=== PATIENT | male | born 1990 | race Caucasian/White ===

== ENCOUNTER 2019-02-03 22:59 | Inpatient (IN) | payer OTHER ==
[2019-02-03] MEDS ORDERED: Sodium Chloride 0.9% 10 ML Syringe FLUSH PRN (23:24)
[2019-02-03] MEDS ORDERED: Ondansetron 4 MG/2 ML SDV IVPUSH ONE (23:27)
[2019-02-03] MEDS ORDERED: Acetaminophen 1,000 MG in Premix Bag 1 BAG IV ONE (23:27)
[2019-02-03] MEDS ORDERED: Sodium Chloride 0.9% 1,000 ML IV ONE (23:27)
--- NOTE | 2019-02-03 23:28 | EDM.PDOC ---
ED HPI GENERAL MEDICAL PROBLEM - General Stated Complaint: VOMITING Time Seen by Provider: 02/03/19 23:10 Source of Information: Reports: Patient History Limitations: Reports: No Limitations - History of Present Illness INITIAL COMMENTS - FREE TEXT/NARRATIVE: 28-year-old transgender whose preferred pronouns is she goes by "Kina" who presents with nausea and malaise which began midday yesterday and progressed into today. She reports that approximately 1-2 PM today she began to have fever and shaking chills and aching all over. The symptoms progressively worsened and then at approximately 10:45 PM tonight she began to have vomiting and has had 4- 5 episodes of emesis. She called a friend and that friend brought her to the emergency department. No diarrhea. She does have ulcers on both of her great toes with the right one being worse than the left. She is a relatively poor historian but does report that she has had the ulcers on her great toes for quite some time but over the past few days to a week the ulcer on her right great toe has slowly become more swollen, more painful and more erythematous. She also developed a slight cough this afternoon. She has had no dysuria. He rates his pain as a 10/10 and reports that it is aching all over. She feels weak and dizzy and she reports that she feels heavy all over. She is a type I diabetic and reports that the last time she checked her blood sugar was in the 120 range. However she cannot tell me when she last checked her blood pressure. There are no other associated signs or symptoms. There are no other modifying factors. Onset: Other (yesterday with worsening today) Duration: Getting Worse Location: Reports: Generalized Quality: Reports: Ache Severity: Severe Improves with: Reports: None Worsens with: Reports: Movement Context: Reports: Other (No known inciting events other than ulcers on her toes) Associated Symptoms: Reports: Diaphoresis, Fever/Chills, Loss of Appetite, Malaise, Nausea/Vomiting, Weakness Treatments VERIFICATION LEAD: Reports: Other (see below) (Nothing) - Related Data Allergies Allergy/AdvReac Type Severity Reaction Status Date / Time No Known Allergies Allergy Verified 02/03/19 23:03 Home Meds: Home Meds Estradiol 02/04/19 [History] Insulin Degludec [Tresiba Flextouch U-100] 02/04/19 [History] Spironolactone [Aldactone] 02/04/19 [History] Past Medical History Endocrine/Metabolic History: Reports: Diabetes, Type I - Past Surgical History Other Surgical History Comment: No previous surgeries Social & Family History - Tobacco Use Smoking Status *Q: Unknown Ever Smoked (Nonsmoker) - Alcohol Use Alcohol Use History: Yes Alcohol Use Frequency: Socially - Sexual History Sexual History: Reports: Same Sex Partner Other Sexual History Comment: Patient is transgender and identifies as a she. - Living Situation & Occupation Living situation: Reports: Single Occupation: Employed (Works at [employer]) Social History Comment: Here with a friend. ED ROS GENERAL - Review of Systems Review Of Systems: See Below Constitutional: Reports: Fever, Chills, Malaise, Weakness, Diaphoresis HEENT: Reports: Other (Dry mouth) Respiratory: Reports: Cough Cardiovascular: Reports: No Symptoms Endocrine: Reports: No Symptoms GI/Abdominal: Reports: Nausea, Vomiting (4-5 since 10:45 PM tonight) : Reports: No Symptoms Musculoskeletal: Reports: Other (Aching all over) Skin: Reports: Diaphoresis Neurological: Reports: No Symptoms Hematologic/Lymphatic: Reports: No Symptoms Immunologic: Reports: No Symptoms ED EXAM, GENERAL - Physical Exam Exam: See Below Exam Limited By: No Limitations General Appearance: Alert, WD/WN, Anxious, Moderate Distress Eye Exam: Bilateral Eye: EOMI, Normal Inspection, PERRL Ears: Normal External Exam Ear Exam: Bilateral Ear: Auricle Normal Nose: Normal Inspection, Normal Mucosa, No Blood Throat/Mouth: Normal Voice, No Airway Compromise, Other (Primary bright) Head: Atraumatic, Normocephalic Neck: Normal Inspection, Supple, Non-Tender, Full Range of Motion Respiratory/Chest: No Respiratory Distress, Lungs Clear, Normal Breath Sounds, No Accessory Muscle Use, Chest Non-Tender Cardiovascular: Normal Peripheral Pulses, No Edema, No JVD, No Murmur, Tachycardia Peripheral Pulses: 2+: Radial (L), Radial (R), Dorsalis Pedis (L), Dorsalis Pedis (R) GI/Abdominal: Soft, No Mass, Tender (Mild diffuse tenderness), Abnormal Bowel Sounds (Decreased bowel sounds) Back Exam: Normal Inspection. No: CVA Tenderness (L), Decreased Range of Motion Extremities: Normal Inspection, No Pedal Edema, Normal Capillary Refill Neurological: Alert, Oriented, CN II-XII Intact, No Motor/Sensory Deficits Skin Exam: Warm, Diaphoretic, Other (Ulcers of both great toes with marked erythema and edema of right great toe with erythema and edema extending to the mid foot) Course - Orders/Labs/Meds Orders: Active Orders 24 hr Category Date Time Status Admission Status [Patient Status] [ADT] Routine ADT 02/04/19 01:11 Ordered Patient Status Manage Transfer [TRANSFER] Routine ADT 02/04/19 01:22 Active Accu Check [Blood Glucose Check, Bedside] [RC] TIDMEALS Care 02/04/19 01:22 Active Antiembolic Devices [RC] .Routine Care 02/04/19 01:14 Active Cardiac Monitoring [RC] .As Directed Care 02/04/19 01:17 Active Height and Weight [RC] DAILY Care 02/04/19 01:13 Active Intake and Output [RC] QSHIFT Care 02/04/19 01:16 Active Pulse Oximetry [RC] PRN Care 02/04/19 01:13 Active Up With Assistance [RC] ASDIRECTED Care 02/04/19 01:13 Active VTE/DVT Education [RC] Click to Edit Care 02/04/19 01:14 Active Vital Signs [RC] Q1H Care 02/04/19 01:13 Active Clear Liquid Diet [DIET] Diet 02/04/19 Breakfast Ordered Chest 2V [CR] Stat Exams 02/03/19 23:24 Taken Foot Comp Min 3V Bi [CR] Stat Exams 02/03/19 23:24 Taken BASIC METABOLIC PANEL,BMP [CHEM] AM Lab 02/04/19 05:11 Ordered CBC W/O DIFF,HEMOGRAM [HEME] AM Lab 02/04/19 05:11 Ordered CULTURE BLOOD [BC] Urgent Lab 02/03/19 23:30 Received CULTURE BLOOD [BC] Urgent Lab 02/03/19 23:35 Received UA W/MICROSCOPIC [URIN] Stat Lab 02/03/19 23:24 Ordered Acetaminophen [Tylenol] Med 02/04/19 01:13 Active 650 mg PO Q4H PRN Insulin Lispro [HumaLOG] Med 02/04/19 08:00 Active See Protocol SUBCUT TIDMEALS Ondansetron [Zofran] Med 02/04/19 01:18 Active 4 mg IVPUSH Q6H PRN Pharmacy to Dose - Vancomycin Med 02/04/19 01:30 Ordered 1 dose .XX ASDIRECTED Piperacillin/Tazobactam [Zosyn] 3.375 gm Med 02/04/19 06:30 Ordered Sodium Chloride 0.9% [Normal Saline] 50 ml IV Q6H Saccharomyces Boulardii [Florastor] Med 02/04/19 09:00 Active 250 mg PO BID Sodium Chloride 0.9% [Normal Saline] 1,000 ml Med 02/03/19 23:30 Active IV ASDIRECTED Sodium Chloride 0.9% [Saline Flush] Med 02/03/19 23:24 Active 10 ml FLUSH ASDIRECTED PRN Vancomycin 1 gm Med 02/04/19 00:23 Active Sodium Chloride 0.9% [Normal Saline] 250 ml IV ONETIME Blood Culture x2 Reflex Set [OM.PC] Urgent Oth 02/03/19 23:24 Ordered DVT/VTE Prophylaxis Reflex [OM.PC] Per Unit Routine Oth 02/04/19 01:13 Ordered Peripheral IV Insertion Adult [OM.PC] Routine Oth 02/03/19 23:24 Ordered Resuscitation Status Routine Resus Stat 02/04/19 01:13 Ordered Medication Orders Acetaminophen (Tylenol) 650 mg PO Q4H PRN PRN Reason: analgesia/fever Sodium Chloride (Normal Saline) 1,000 mls @ 150 mls/hr IV ASDIRECTED RAKAN Last Admin: 02/04/19 00:20 Dose: 150 mls/hr Vancomycin HCl 1 gm/ Sodium (Chloride) 250 mls @ 167 mls/hr IV ONETIME ONE Stop: 02/04/19 01:52 Last Admin: 02/04/19 01:01 Dose: 167 mls/hr Piperacillin Sod/Tazobactam (Sod 3.375 gm/ Sodium Chloride) 50 mls @ 100 mls/ hr IV Q6H RAKAN Insulin Human Lispro (Humalog) 0 unit SUBCUT TIDMEALS [facility]; Protocol Ondansetron HCl (Zofran) 4 mg IVPUSH Q6H PRN PRN Reason: Nausea/Vomiting Saccharomyces Boulardii (Florastor) 250 mg PO BID RAKAN Sodium Chloride (Saline Flush) 10 ml FLUSH ASDIRECTED PRN PRN Reason: Keep Vein Open Last Admin: 02/04/19 00:12 Dose: 10 ml Vancomycin HCl (Pharmacy To Dose - Vancomycin) 1 dose .XX ASDIRECTED [facility] Labs: Laboratory Tests 02/03/19 02/03/19 02/03/19 Range/Units 23:30 23:30 23:30 WBC 3.9 L (4.5-12.0) X10-3/uL RBC 3.27 L (4.30-5.75) x10(6)uL Hgb 10.8 L (13.5-17.8) g/dL Hct 30.5 (30.0-51.3) % MCV 93.1 (80-96) fL MCH 33.0 (27.7-33.6) pg MCHC 35.4 (32.2-35.4) g/dL RDW 11.5 (11.5-15.5) % Plt Count 175 (125-369) X10(3)uL MPV 7.9 (7.4-10.4) fL Add Manual Diff Yes Neutrophils % (Manual) 70 (46-82) % Band Neutrophils % 8 H (0-6) % Lymphocytes % (Manual) 20 (13-37) % Eosinophils % (Manual) 1 (0-5) % Basophils % (Manual) 1 (0-2) % POC VBG pH (7.31-7.41) POC VBG pCO2 (41-51) mmHG POC VBG HCO3 (23-28) mmol/L POC VBG Total CO2 (24-29) mmol/L POC VBG Base Excess (-2-3) mmol/L Sodium 137 (135-145) mmol/L Potassium 4.3 (3.5-5.3) mmol/L Chloride 100 (100-110) mmol/L Carbon Dioxide 22 (21-32) mmol/L BUN 20 H (7-18) mg/dL Creatinine 1.7 H (0.70-1.30) mg/dL Est Cr Clr Drug Dosing TNP Estimated GFR (MDRD) 48 L (>60) BUN/Creatinine Ratio 11.8 (9-20) Glucose 181 H (80-116) mg/dL Lactic Acid 2.9 H (0.4-2.2) mmol/L Calcium 8.6 (8.6-10.2) mg/dL Total Bilirubin 1.1 (0.1-1.3) mg/dL AST 24 (5-25) IU/L ALT 25 (12-36) U/L Alkaline Phosphatase 101 (56-112) IU/L C-Reactive Protein (0.5-0.9) mg/dL Total Protein 7.3 (6.0-8.0) g/dL Albumin 2.8 L (3.5-5.2) g/dL Globulin 4.5 g/dL Albumin/Globulin Ratio 0.6 02/03/19 02/03/19 Range/Units 23:30 23:45 WBC (4.5-12.0) X10-3/uL RBC (4.30-5.75) x10(6)uL Hgb (13.5-17.8) g/dL Hct (30.0-51.3) % MCV (80-96) fL MCH (27.7-33.6) pg MCHC (32.2-35.4) g/dL RDW (11.5-15.5) % Plt Count (125-369) X10(3)uL MPV (7.4-10.4) fL Add Manual Diff Neutrophils % (Manual) (46-82) % Band Neutrophils % (0-6) % Lymphocytes % (Manual) (13-37) % Eosinophils % (Manual) (0-5) % Basophils % (Manual) (0-2) % POC VBG pH 7.46 H (7.31-7.41) POC VBG pCO2 27.2 L (41-51) mmHG POC VBG HCO3 19.3 L (23-28) mmol/L POC VBG Total CO2 20 L (24-29) mmol/L POC VBG Base Excess -4 L (-2-3) mmol/L Sodium (135-145) mmol/L Potassium (3.5-5.3) mmol/L Chloride (100-110) mmol/L Carbon Dioxide (21-32) mmol/L BUN (7-18) mg/dL Creatinine (0.70-1.30) mg/dL Est Cr Clr Drug Dosing Estimated GFR (MDRD) (>60) BUN/Creatinine Ratio (9-20) Glucose (80-116) mg/dL Lactic Acid (0.4-2.2) mmol/L Calcium (8.6-10.2) mg/dL Total Bilirubin (0.1-1.3) mg/dL AST (5-25) IU/L ALT (12-36) U/L Alkaline Phosphatase (56-112) IU/L C-Reactive Protein 17.2 H* (0.5-0.9) mg/dL Total Protein (6.0-8.0) g/dL Albumin (3.5-5.2) g/dL Globulin g/dL Albumin/Globulin Ratio Meds: Medications Generic Name Dose Route Start Last Admin Trade Name Gabriella PRN Reason Stop Dose Admin Acetaminophen 650 mg 02/04/19 01:13 Tylenol PO Q4H PRN analgesia/fever Sodium Chloride 1,000 mls @ 150 mls/hr 02/03/19 23:30 02/04/19 00:20 Normal Saline IV 150 mls/hr ASDIRECTED RAKAN Administration Vancomycin HCl 1 gm/ Sodium 250 mls @ 167 mls/hr 02/04/19 00:23 02/04/19 01: 01 Chloride IV 02/04/19 01:52 167 mls/hr ONETIME ONE Administration Piperacillin Sod/Tazobactam 50 mls @ 100 mls/hr 02/04/19 06:30 Sod 3.375 gm/ Sodium Chloride IV Q6H [facility] Insulin Human Lispro 0 unit 02/04/19 08:00 Humalog SUBCUT TIDMEALS [facility] Protocol Ondansetron HCl 4 mg 02/04/19 01:18 Zofran IVPUSH Q6H PRN Nausea/Vomiting Saccharomyces Boulardii 250 mg 02/04/19 09:00 Florastor PO BID RAKAN Sodium Chloride 10 ml 02/03/19 23:24 02/04/19 00:12 Saline Flush FLUSH 10 ml ASDIRECTED PRN Administration Keep Vein Open Vancomycin HCl 1 dose 02/04/19 01:30 Pharmacy To Dose - Vancomycin .XX ASDIRECTED RAKAN Discontinued Medications Generic Name Dose Route Start Last Admin Trade Name Freq PRN Reason Stop Dose Admin Acetaminophen 1,000 mg/ Premix 100 mls @ 400 mls/hr 02/03/19 23:27 02/03/19 23:45 IV 02/03/19 23:41 400 mls/hr NOW ONE Administration Sodium Chloride 1,000 mls @ 999 mls/hr 02/03/19 23:27 02/03/19 23:30 Normal Saline IV 02/04/19 00:27 999 mls/hr .BOLUS ONE Administration Piperacillin Sod/Tazobactam 50 mls @ 100 mls/hr 02/04/19 00:24 02/04/19 01:01 Sod 3.375 gm/ Sodium Chloride IV 02/04/19 00:53 100 mls/hr ONETIME ONE Administration Ondansetron HCl 4 mg 02/03/19 23:27 02/03/19 23:35 Zofran IVPUSH 02/03/19 23:28 4 mg ONETIME ONE Administration Vancomycin HCl Confirm 02/04/19 00:49 02/04/19 01:09 Vancomycin Administered 02/04/19 00:50 Not Given Dose 1 gm .ROUTE .[facility] ONE - Radiology Interpretation Free Text/Narrative:: Chest x-ray shows no acute abnormality X-rays of both feet show no evidence of free air. There is soft tissue swelling around the right great toe and some degenerative changes of the distal phalanx of the right great toe. - Re-Assessments/Exams Free Text/Narrative Re-Assessment/Exam: 02/04/19 00:40: Patient's fever has defervesced. Her blood pressure is 130/80 and her pulse rate is 102. She feels much improved. She does appear to have a cellulitis and early sepsis associated with her right great toe wound. White blood cell count was 3.9 but with a bandemia. CRP was markedly elevated. Lactic acid was elevated. She does have evidence of an acute kidney injury although I have no old creatinine to compare. She will need admission with IV antibiotics and wound care with surgical evaluation of her right great toe ulcers. She is agreeable to admission at [facility] and will need a greater then 2 midnight stay to accomplish this plan of care. Blood cultures 2 have been obtained. The patient will be given vancomycin 1 g IV now with further dosing per pharmacy. She will also be given Zosyn 3.375 g IV. She will also be given continued IV fluid hydration. 02/04/19 01:20: I have placed admission orders. The patient remains vitally stable and appears improved. Repeat CBC and basic metabolic profile are ordered for a.m. Dr. Mistry will assume care of patient at 7 AM on 02/04/2019. Departure - Departure Time of Disposition: 01:15 Disposition: Admitted As Inpatient 65 Condition: Fair (Stable) Clinical Impression: Ulcer of right great toe due to diabetes mellitus, Cellulitis of right foot, Acute kidney injury Sepsis Qualifiers: Sepsis type: sepsis due to unspecified organism Qualified Code(s): A41.9 - Sepsis, unspecified organism - Discharge Information Referrals: PCP,None [Primary Care Provider] - - My Orders Last 24 Hours: My Active Orders 02/03/19 23:24 Chest 2V [CR] Stat Foot Comp Min 3V Bi [CR] Stat UA W/MICROSCOPIC [URIN] Stat Sodium Chloride 0.9% [Saline Flush] 10 ml FLUSH ASDIRECTED PRN Blood Culture x2 Reflex Set [OM.PC] Urgent Peripheral IV Insertion Adult [OM.PC] Routine 02/03/19 23:30 CULTURE BLOOD [BC] Urgent Sodium Chloride 0.9% [Normal Saline] 1,000 ml IV ASDIRECTED 02/03/19 23:35 CULTURE BLOOD [BC] Urgent 02/04/19 00:23 Vancomycin 1 gm Sodium Chloride 0.9% [Normal Saline] 250 ml IV ONETIME 02/04/19 01:11 Admission Status [Patient Status] [ADT] Routine 02/04/19 01:13 Height and Weight [RC] DAILY Pulse Oximetry [RC] PRN Up With Assistance [RC] ASDIRECTED Vital Signs [RC] Q1H Acetaminophen [Tylenol] 650 mg PO Q4H PRN DVT/VTE Prophylaxis Reflex [OM.PC] Per Unit Routine Resuscitation Status Routine 02/04/19 01:14 Antiembolic Devices [RC] .Routine VTE/DVT Education [RC] Click to Edit 02/04/19 01:16 Intake and Output [RC] QSHIFT 02/04/19 01:17 Cardiac Monitoring [RC] .As Directed 02/04/19 01:18 Ondansetron [Zofran] 4 mg IVPUSH Q6H PRN 02/04/19 01:22 Patient Status Manage Transfer [TRANSFER] Routine Accu Check [Blood Glucose Check, Bedside] [RC] TIDMEALS 02/04/19 01:30 Pharmacy to Dose - Vancomycin 1 dose .XX ASDIRECTED 02/04/19 05:11 BASIC METABOLIC PANEL,BMP [CHEM] AM CBC W/O DIFF,HEMOGRAM [HEME] AM 02/04/19 06:30 Piperacillin/Tazobactam [Zosyn] 3.375 gm Sodium Chloride 0.9% [Normal Saline] 50 ml IV Q6H 02/04/19 08:00 Insulin Lispro [HumaLOG] See Protocol SUBCUT TIDMEALS 02/04/19 09:00 Saccharomyces Boulardii [Florastor] 250 mg PO BID 02/04/19 Breakfast Clear Liquid Diet [DIET] - Assessment/Plan Last 24 Hours: My Active Orders 02/03/19 23:24 Chest 2V [CR] Stat Foot Comp Min 3V Bi [CR] Stat UA W/MICROSCOPIC [URIN] Stat Sodium Chloride 0.9% [Saline Flush] 10 ml FLUSH ASDIRECTED PRN Blood Culture x2 Reflex Set [OM.PC] Urgent Peripheral IV Insertion Adult [OM.PC] Routine 02/03/19 23:30 CULTURE BLOOD [BC] Urgent Sodium Chloride 0.9% [Normal Saline] 1,000 ml IV ASDIRECTED 02/03/19 23:35 CULTURE BLOOD [BC] Urgent 02/04/19 00:23 Vancomycin 1 gm Sodium Chloride 0.9% [Normal Saline] 250 ml IV ONETIME 02/04/19 01:11 Admission Status [Patient Status] [ADT] Routine 02/04/19 01:13 Height and Weight [RC] DAILY Pulse Oximetry [RC] PRN Up With Assistance [RC] ASDIRECTED Vital Signs [RC] Q1H Acetaminophen [Tylenol] 650 mg PO Q4H PRN DVT/VTE Prophylaxis Reflex [OM.PC] Per Unit Routine Resuscitation Status Routine 02/04/19 01:14 Antiembolic Devices [RC] .Routine VTE/DVT Education [RC] Click to Edit 02/04/19 01:16 Intake and Output [RC] QSHIFT 02/04/19 01:17 Cardiac Monitoring [RC] .As Directed 02/04/19 01:18 Ondansetron [Zofran] 4 mg IVPUSH Q6H PRN 02/04/19 01:22 Patient Status Manage Transfer [TRANSFER] Routine Accu Check [Blood Glucose Check, Bedside] [RC] TIDMEALS 02/04/19 01:30 Pharmacy to Dose - Vancomycin 1 dose .XX ASDIRECTED 02/04/19 05:11 BASIC METABOLIC PANEL,BMP [CHEM] AM CBC W/O DIFF,HEMOGRAM [HEME] AM 02/04/19 06:30 Piperacillin/Tazobactam [Zosyn] 3.375 gm Sodium Chloride 0.9% [Normal Saline] 50 ml IV Q6H 02/04/19 08:00 Insulin Lispro [HumaLOG] See Protocol SUBCUT TIDMEALS 02/04/19 09:00 Saccharomyces Boulardii [Florastor] 250 mg PO BID 02/04/19 Breakfast Clear Liquid Diet [DIET]
[2019-02-03] MEDS ORDERED: Sodium Chloride 0.9% 1,000 ML IV SCH (23:30)
[2019-02-04] MEDS ORDERED: Piperacillin/Tazobactam 3.375 GM in Sodium Chloride 0.9% 50 ML IV ONE (00:24)
[2019-02-04] MEDS ORDERED: Vancomycin 1 GM SDV ONE (00:49)
[2019-02-04] MEDS ORDERED: Acetaminophen 325 MG Tab PO PRN (01:13)
[2019-02-04] MEDS ORDERED: Ondansetron 4 MG/2 ML SDV IVPUSH PRN (01:18)
[2019-02-04] MEDS ORDERED: Lidocaine 2% HCl 6 ML JEL.PF.APP ONE ×2 (04:14→04:16)
[2019-02-04] MEDS ORDERED: Sodium Chloride 0.9% 1,000 ML IV ONE ×3 (04:15→05:44)
[2019-02-04] MEDS ORDERED: Norepinephrine 4 MG in Dextrose 5% in Water 246 ML IV SCH ×2 (04:15)
--- NOTE | 2019-02-04 04:46 | PCM.SN ---
- Free Text/Narrative Note: Called by nursing staff to see patient secondary to blood pressure in the 60 systolic range, diaphoresis and patient with abdominal and back pain. When the patient had been admitted to the floor his blood pressure initially upon arrival was in the 94-100 systolic range and following this he began to have some abdominal cramping and then had a large diarrhea stool that was nonbloody. Following this his blood pressure up into the 60 systolic range with a pulse rate in the 80 range and he was continually complaining of lower back pain and some abdominal discomfort with nausea.upon my arrival to see the patient is blood pressure was in the 60 systolic range still despite initiation of normal saline 1 L bolus. Another 1 L normal saline bolus was given with continued blood pressure in the 70 systolic range. At this point he was quite diaphoretic , was quite pale appearing and was verbally responsive and seemed oriented to place and time. IV fluid resuscitation was continued with normal saline and levophed was initiated rated up. his blood pressure came up into the 115 to 120 systolic range and he appeared to become less agitated. He was also started on O2 at 3 L/m via nasal cannula secondary to O2 saturations in the 93% range. A Parada catheter was inserted and begin to drain clear urine. The pharmacist recommended an additional 500mg of vancomycin IV be initiated.at this point, I feel that he most probably has septic shock related to the previous sepsis related to the right foot cellulitis. He has, however, having abdominal and back pain and he appears pale. He will need ICU care and potential radiology services including CT scan which are not available at [facility] at this time. Therefore he will need to be transferred to a facility with these specially services available. I have discussed this with the patient and he would prefer that I discussed this case with the doctors at [facility] in [place]. I discussed patient's case with Dr. Willis, alumina refinery operator at [facility] in [place], and he has agreed to accept the patient in transfer. On a Levaphed drip and after now 4 L of normal saline as a bolus(with 1 L being given in the emergency department), the patient's blood pressure has improved, his diaphoresis has seated and his skin coloration has improved with improved perfusion. The patient will be transferred ambulance to [facility] in [place] for direct admission to the intensive care unit. For now, we will continue closely monitoring the patient. 0535 Hrs: Patient with blood pressure in the 90 systolic range now and EMS crew is here and feel uncomfortable with transport. Pt is critically ill and will need critical care transport and expedited transport only available thru air [facility] transport. Will continue to titrate levophed and will also give an additional NS fluid bolus x 1 liter and will continue close monitoring. Approximate additional critical care time spent with the patient was 65 minutes.
[2019-02-04] MEDS ORDERED: Piperacillin/Tazobactam 3.375 GM in Sodium Chloride 0.9% 50 ML IV SCH (06:00)
[2019-02-04] MEDS ORDERED: Insulin Lispro 100 Unit/ML 3 ML KwikPen SUBCUT SCH (08:00)
[2019-02-04] MEDS ORDERED: Saccharomyces Boulardii (Probiotic) 250 MG Cap PO SCH (09:00)
== END 2019-02-04 06:36 | DRG 871 ==
LOC: FB.ED 22:59 → FB.MS 02-04 01:40
PROVIDERS: ADMIT Emergency Medicine; ATTEND Family Medicine
DX: A41.9 Sepsis, unspecified organism (principal); R65.21 Severe sepsis with septic shock; L03.115 Cellulitis of right lower limb; N17.9 Acute kidney failure, unspecified; E10.621 Type 1 diabetes mellitus with foot ulcer; L97.529 Non-pressure chronic ulcer of other part of left foot with unspecified severity; L97.519 Non-pressure chronic ulcer of other part of right foot with unspecified severity; F64.0 Transsexualism; Z79.4 Long term (current) use of insulin
CPT/HCPCS: 36415; 51702; 71046; 73630-50; 80053; 81001; 82803; 82962; 83605; 85025; 86140; 87040; 87077; 87086; 96361; 96365; 96368; 96375; 99284-25; A9270-GY; J0131; J1815; J2405; J2543; J3370; J7030; J7050; J7060

== ENCOUNTER 2019-11-12 16:15 | Emergency (ER) | payer OTHER ==
[2019-11-12] MEDS ORDERED: Ondansetron 4 MG/2 ML SDV IVPUSH ONE (16:52)
--- NOTE | 2019-11-12 16:59 | EDM.PDOC ---
ED HPI GENERAL MEDICAL PROBLEM - General Chief Complaint: Abdominal Pain Stated Complaint: ABD PAIN,FEVER Time Seen by Provider: 11/12/19 16:35 Source of Information: Reports: Patient History Limitations: Reports: No Limitations - History of Present Illness INITIAL COMMENTS - FREE TEXT/NARRATIVE: abd pain since wednesday vomited then on wednesday , felt better then wednesday got worse , same wednesday and wednesday Today pain is worse again : lower abd with vomiting 2 times today has been constipated in the last 3 days denies any diarrhea , has had fever of 101 today no cough or shortness of breath noted Onset: Gradual Onset Date: 11/07/19 Duration: Day(s): (5), Getting Worse Location: Reports: Abdomen Quality: Reports: Ache, Dull Severity: Moderate Worsens with: Reports: Eating Associated Symptoms: Reports: Loss of Appetite, Malaise, Nausea/Vomiting. Denies: Cough, Diaphoresis Upper & mid-abdominal region Pain Score (Numeric/FACES): 2 - Related Data Allergies Allergy/AdvReac Type Severity Reaction Status Date / Time No Known Allergies Allergy Verified 11/12/19 16:26 Home Meds: Home Meds Insulin Degludec [Tresiba Flextouch U-100] 21 units SQ DAILY 02/04/19 [History] Spironolactone [Aldactone] 100 mg BID 02/04/19 [History] estradioL [Estradiol] 8 mg BID 02/04/19 [History] Acetaminophen/HYDROcodone [[place] 325-5 MG] 1 tab PO Q6H PRN #8 tablet 11/12/19 [ Rx] Insulin Regular, Human [NovoLIN R] 1 - 30 units SQ TID 11/12/19 [History] Ondansetron [Zofran ODT] 4 mg PO Q6H PRN #30 tab.dis 11/12/19 [Rx] Tamsulosin HCl [Flomax] 0.4 mg PO DAILY #30 cap.er.24h 11/12/19 [Rx] medroxyPROGESTERone Acetate [Medroxyprogesterone Acetate] 5 mg BEDTIME 11/12/19 [History] Past Medical History HEENT History: Reports: None Cardiovascular History: Reports: None Respiratory History: Reports: None Gastrointestinal History: Reports: None Genitourinary History: Reports: None Musculoskeletal History: Reports: Amputation Other Musculoskeletal History: R gt toe amputated due to ulcer Neurological History: Reports: None Psychiatric History: Reports: Other (See Below) Other Psychiatric History: HRT Endocrine/Metabolic History: Reports: Diabetes, Type I Hematologic History: Reports: None Dermatologic History: Reports: Other (See Below) Other Dermatologic History: foot ulcer on left 1 year, right 1 month - Infectious Disease History Infectious Disease History: Reports: Chicken Pox - Past Surgical History HEENT Surgical History: Reports: None Cardiovascular Surgical History: Reports: None Respiratory Surgical History: Reports: None GI Surgical History: Reports: None Male Surgical History: Reports: Circumcision Endocrine Surgical History: Reports: None Neurological Surgical History: Reports: None Musculoskeletal Surgical History: Reports: Amputation Other Musculoskeletal Surgeries/Procedures:: R gt toe Dermatological Surgical History: Reports: None Social & Family History - Family History Family Medical History: Noncontributory - Tobacco Use Smoking Status *Q: Former Smoker Years of Tobacco use: 2 Used Tobacco, but Quit: Yes Month/Year Tobacco Last Used: 2017 - Caffeine Use Caffeine Use: Reports: Coffee, Energy Drinks, Tea - Recreational Drug Use Recreational Drug Use: Yes Recreational Drug Type: Reports: Marijuana/Hashish Recreational Drug Use Frequency: Weekly - Sexual History Sexual History: Reports: Same Sex Partner Other Sexual History Comment: Patient is transgender and identifies as a she. - Living Situation & Occupation Living situation: Reports: Single Occupation: Employed (Works at [employer]) ED ROS GENERAL - Review of Systems Review Of Systems: Comprehensive ROS is negative, except as noted in HPI. Constitutional: Reports: Fever, Chills, Malaise HEENT: Reports: No Symptoms Respiratory: Reports: No Symptoms Cardiovascular: Reports: No Symptoms Endocrine: Reports: No Symptoms GI/Abdominal: Reports: Abdominal Pain, Anorexia, Constipation, Decreased Appetite, Nausea, Vomiting. Denies: Diarrhea Musculoskeletal: Reports: No Symptoms Skin: Reports: No Symptoms Neurological: Reports: No Symptoms Psychiatric: Reports: No Symptoms ED EXAM, GI/ABD - Physical Exam Exam: See Below Exam Limited By: No Limitations General Appearance: Alert, WD/WN, No Apparent Distress Eyes: Bilateral: EOMI Ears: Normal External Exam Nose: Normal Inspection Throat/Mouth: Normal Oropharynx Head: Atraumatic, Normocephalic Neck: Supple, Non-Tender Respiratory/Chest: Lungs Clear, Normal Breath Sounds, Chest Non-Tender Cardiovascular: Normal Peripheral Pulses, Regular Rate, Rhythm GI/Abdominal Exam: Soft, Tender, Abnormal Bowel Sounds (hypoactive bowel sounds) Back Exam: Full Range of Motion Neurological: Alert, Oriented Skin Exam: Warm Course - Vital Signs Last Recorded V/S: Last Vital Signs Temp 36.9 C 11/12/19 16:20 Pulse 87 11/12/19 16:20 Resp 18 11/12/19 16:20 BP 164/94 H 11/12/19 16:20 Pulse Ox 99 11/12/19 16:20 - Orders/Labs/Meds Orders: Active Orders 24 hr Category Date Time Status Abdomen 2V AP Flat Upright [CR] Stat Exams 11/12/19 16:53 Stop Req Abdomen wo Cont [CT] Stat Exams 11/12/19 17:49 Ordered CRP [C-REACTIVE PROTEIN] [CHEM] Stat Lab 11/12/19 17:50 Ordered LACTIC ACID [CHEM] Stat Lab 11/12/19 17:50 Ordered Sodium Chloride 0.9% [Normal Saline] 1,000 ml Med 11/12/19 17:00 Active IV ASDIRECTED Medication Orders Sodium Chloride (Normal Saline) 1,000 mls @ 1,000 mls/hr IV ASDIRECTED RAKAN Labs: Laboratory Tests 11/12/19 11/12/19 11/12/19 Range/Units 16:35 16:35 17:20 WBC 9.5 (4.5-12.0) X10-3/uL RBC 3.23 L (4.30-5.75) x10(6)uL Hgb 10.7 L (13.5-17.8) g/dL Hct 30.3 (30.0-51.3) % MCV 93.8 (80-96) fL MCH 33.1 (27.7-33.6) pg MCHC 35.3 (32.2-35.4) g/dL RDW 11.1 L (11.5-15.5) % Plt Count 233 (125-369) X10(3)uL MPV 7.9 (7.4-10.4) fL Neut % (Auto) 71.1 (46-82) % Lymph % (Auto) 21.5 (13-37) % [place] % (Auto) 4.5 (4-12) % Eos % (Auto) 2 (1.0-5.0) % Baso % (Auto) 1 (0-2) % Neut # (Auto) 6.9 (1.6-8.3) # Lymph # (Auto) 2.0 (0.6-5.0) # [place] # (Auto) 0.4 (0.0-1.3) # Eos # (Auto) 0.1 (0.0-0.8) # Baso # (Auto) 0.1 (0.0-0.2) # Sodium (135-145) mmol/L Potassium (3.5-5.3) mmol/L Chloride (100-110) mmol/L Carbon Dioxide (21-32) mmol/L BUN (7-18) mg/dL Creatinine (0.70-1.30) mg/dL Est Cr Clr Drug Dosing mL/min Estimated GFR (MDRD) (>60) BUN/Creatinine Ratio (9-20) Glucose (80-116) mg/dL Calcium (8.6-10.2) mg/dL Urine Color Yellow (YELLOW) Urine Appearance Clear (CLEAR) Urine pH 6.0 (5.0-6.5) Ur Specific [place] 1.005 L (1.010-1.025) Urine Protein 500 H (NEGATIVE) mg/dL Urine Glucose (UA) 100 H (NORMAL) mg/dL Urine Ketones Negative (NEGATIVE) mg/dL Urine Occult Blood Large H (NEGATIVE) Urine Nitrite Negative (NEGATIVE) Urine Bilirubin Negative (NEGATIVE) Urine Urobilinogen Normal (NEGATIVE) mg/dL Ur Leukocyte Esterase Negative (NEGATIVE) Urine RBC 5-10 H (0-5) Urine WBC 0-5 (0-5) Ur Squamous Epith Cells Occasional (NS,R,O) Urine Bacteria Rare H (NS) Urine Opiates Screen Negative (NEGATIVE) Ur Oxycodone Screen Negative (NEGATIVE) Ur Propoxyphene Screen Negative (NEGATIVE) Ur Barbituates Screen Negative (NEGATIVE) Ur Tricyclics Screen Negative (NEGATIVE) Ur Phencyclidine Scrn Negative (NEGATIVE) Ur Amphetamine Screen Negative (NEGATIVE) Urine MDMA Screen Negative (NEGATIVE) U Benzodiazepines Scrn Negative (NEGATIVE) U Cocaine Metab Screen Negative (NEGATIVE) U Marijuana (THC) Screen Positive H (NEGATIVE) 11/12/19 Range/Units 17:20 WBC (4.5-12.0) X10-3/uL RBC (4.30-5.75) x10(6)uL Hgb (13.5-17.8) g/dL Hct (30.0-51.3) % MCV (80-96) fL MCH (27.7-33.6) pg MCHC (32.2-35.4) g/dL RDW (11.5-15.5) % Plt Count (125-369) X10(3)uL MPV (7.4-10.4) fL Neut % (Auto) (46-82) % Lymph % (Auto) (13-37) % [place] % (Auto) (4-12) % Eos % (Auto) (1.0-5.0) % Baso % (Auto) (0-2) % Neut # (Auto) (1.6-8.3) # Lymph # (Auto) (0.6-5.0) # [place] # (Auto) (0.0-1.3) # Eos # (Auto) (0.0-0.8) # Baso # (Auto) (0.0-0.2) # Sodium 139 (135-145) mmol/L Potassium 4.2 (3.5-5.3) mmol/L Chloride 104 (100-110) mmol/L Carbon Dioxide 26 (21-32) mmol/L BUN 18 (7-18) mg/dL Creatinine 1.1 (0.70-1.30) mg/dL Est Cr Clr Drug Dosing 107.78 mL/min Estimated GFR (MDRD) > 60 (>60) BUN/Creatinine Ratio 16.4 (9-20) Glucose 206 H (80-116) mg/dL Calcium 8.6 (8.6-10.2) mg/dL Urine Color (YELLOW) Urine Appearance (CLEAR) Urine pH (5.0-6.5) Ur Specific [place] (1.010-1.025) Urine Protein (NEGATIVE) mg/dL Urine Glucose (UA) (NORMAL) mg/dL Urine Ketones (NEGATIVE) mg/dL Urine Occult Blood (NEGATIVE) Urine Nitrite (NEGATIVE) Urine Bilirubin (NEGATIVE) Urine Urobilinogen (NEGATIVE) mg/dL Ur Leukocyte Esterase (NEGATIVE) Urine RBC (0-5) Urine WBC (0-5) Ur Squamous Epith Cells (NS,R,O) Urine Bacteria (NS) Urine Opiates Screen (NEGATIVE) Ur Oxycodone Screen (NEGATIVE) Ur Propoxyphene Screen (NEGATIVE) Ur Barbituates Screen (NEGATIVE) Ur Tricyclics Screen (NEGATIVE) Ur Phencyclidine Scrn (NEGATIVE) Ur Amphetamine Screen (NEGATIVE) Urine MDMA Screen (NEGATIVE) U Benzodiazepines Scrn (NEGATIVE) U Cocaine Metab Screen (NEGATIVE) U Marijuana (THC) Screen (NEGATIVE) Meds: Medications Generic Name Dose Route Start Last Admin Trade Name Freq PRN Reason Stop Dose Admin Sodium Chloride 1,000 mls @ 1,000 mls/hr 11/12/19 17:00 Normal Saline IV ASDIRECTED RAKAN Discontinued Medications Generic Name Dose Route Start Last Admin Trade Name Freq PRN Reason Stop Dose Admin Ondansetron HCl 4 mg 11/12/19 16:52 Zofran IVPUSH 11/12/19 16:53 ONETIME ONE - Re-Assessments/Exams Free Text/Narrative Re-Assessment/Exam: 11/12/19 18:40 Abd pain improved had IVF CT abd done : confirmed pt has renal calculi pt given flomax and more fluid 11/12/19 18:42 Departure - Departure Time of Disposition: 18:52 Disposition: Home, Self-Care 01 Clinical Impression: Abdominal pain, Hematuria, Type 1 diabetes mellitus on insulin therapy, Renal calculus, right - Discharge Information *PRESCRIPTION DRUG MONITORING PROGRAM REVIEWED*: Not Applicable *COPY OF PRESCRIPTION DRUG MONITORING REPORT IN PATIENT SUDHIR: Not Applicable Instructions: Renal Colic, Dietary Guidelines to Help Prevent Kidney Stones, Kidney Stones, Hyqd-nr-Oonn Referrals: Shayy Montiel NP [Primary Care Provider] - Forms: ED Department Discharge Additional Instructions: 1) continue with increased fluid intake 2) Strain uriine to get stone , bring in for analysis 3) make appt ( virtual ) to follow up with your PCP to re-assess kidney function you may need to repeat blood tests 4) adjust diet to avoid further kidney stones Sepsis Event Note - Evaluation Sepsis Screening Result: No Definite Risk - Focused Exam Vital Signs: Vital Signs Temp Pulse Resp BP Pulse Ox 11/12/19 16:20 36.9 C 87 18 164/94 H 99 Date Exam was Performed: 11/12/19 Time Exam was Performed: 17:53 - My Orders Last 24 Hours: My Active Orders 11/12/19 16:53 Abdomen 2V AP Flat Upright [CR] Stat 11/12/19 17:00 Sodium Chloride 0.9% [Normal Saline] 1,000 ml IV ASDIRECTED 11/12/19 17:49 Abdomen wo Cont [CT] Stat 11/12/19 17:50 CRP [C-REACTIVE PROTEIN] [CHEM] Stat LACTIC ACID [CHEM] Stat - Assessment/Plan Last 24 Hours: My Active Orders 11/12/19 16:53 Abdomen 2V AP Flat Upright [CR] Stat 11/12/19 17:00 Sodium Chloride 0.9% [Normal Saline] 1,000 ml IV ASDIRECTED 11/12/19 17:49 Abdomen wo Cont [CT] Stat 11/12/19 17:50 CRP [C-REACTIVE PROTEIN] [CHEM] Stat LACTIC ACID [CHEM] Stat
[2019-11-12] MEDS ORDERED: Sodium Chloride 0.9% 1,000 ML IV SCH (17:00)
[2019-11-12] MEDS ORDERED: cefTRIAXone 1 GM in Sodium Chloride 0.9% 50 ML IV ONE (18:05)
[2019-11-12] MEDS ORDERED: Magnesium Hydroxide 400 MG/5 ML Susp 30 ML Cup PO ONE (18:08)
[2019-11-12] MEDS ORDERED: Sodium Chloride 0.9% 1,000 ML IV ONE (18:16)
[2019-11-12] MEDS ORDERED: cefTRIAXone 1 GM Vial IVPUSH ONE (18:17)
[2019-11-12] MEDS ORDERED: Tamsulosin 0.4 MG Cap.ER PO ONE (18:35)
[2019-11-12] MEDS ORDERED: methylPREDNISolone Sodium Succinate 125 MG/2 ML SDV IVPUSH ONE (18:41)
[2019-11-12] MEDS ORDERED: Ketorolac 30 MG/ML SDV IVPUSH ONE (19:02)
== END 2019-11-12 19:25 | disposition home or self-care (01) ==
LOC: FB.ED 16:15
DX: N13.2 Hydronephrosis with renal and ureteral calculous obstruction (principal); E10.9 Type 1 diabetes mellitus without complications; R31.9 Hematuria, unspecified; Z79.899 Other long term (current) drug therapy
CPT/HCPCS: 36415; 74150; 74176; 80048; 80305-QW; 81001; 83605; 85025; 86140; 96361; 96374; 96375; 99284-25; A9270-GY; J0696; J1885; J2405; J2930; J7030

== ENCOUNTER 2020-06-01 18:08 | Observation (INO) | payer OTHER ==
--- NOTE | 2020-06-01 18:20 | EDM.PDOC ---
ED HPI GENERAL MEDICAL PROBLEM - General Chief Complaint: Abdominal Pain Stated Complaint: ABD PAIN Time Seen by Provider: 06/01/20 18:18 Source of Information: Reports: Patient History Limitations: Reports: No Limitations - History of Present Illness INITIAL COMMENTS - FREE TEXT/NARRATIVE: 29-year-old transgender female who reports onset at approximately 3 PM of diffuse abdominal pain that is a sharp and cramping type pain. It was associated with nausea and then vomiting. She has had vomiting 6+ and no diarrhea. The emesis is bilious. The pain is constant but there is a waxing and waning component. She rates pain as an 8-9/10. She reports that she has had trouble with "stomach problems" for some time with almost daily vomiting and intermittent abdominal cramping but nothing as severe as she is having today. She reports that prior to this she was feeling completely fine and she had been eating and drinking normally. He has had no fevers. No chills. No difficulty br eathing. For sore throat. No syncope or presyncope. The pain does radiate through to her back There are no other associated signs or symptoms. There are no other modifying factors. Onset: Today Duration: Constant (3 PM), Waxing/Waning (Constant with a waxing and waning component.) Location: Reports: Abdomen Quality: Reports: Sharp, Other (Cramping) Severity: Severe Improves with: Reports: None Worsens with: Reports: Other (Palpation) Context: Reports: Other (As above) Associated Symptoms: Reports: Nausea/Vomiting, Other (Otherwise as above) Treatments [employer]: Reports: Other (see below) (Nothing.) Middle Abdomen Pain Score (Numeric/FACES): 6 - Related Data Allergies Allergy/AdvReac Type Severity Reaction Status Date / Time No Known Allergies Allergy Verified 06/01/20 18:25 Home Meds: Home Meds Insulin Degludec [Tresiba Flextouch U-100] 21 units SQ DAILY 02/04/19 [History] Spironolactone [Aldactone] 100 mg BID 02/04/19 [History] estradioL [Estradiol] 8 mg BID 02/04/19 [History] Acetaminophen/HYDROcodone [[place] 325-5 MG] 1 tab PO Q6H PRN #8 tablet 11/12/19 [Rx] Insulin Regular, Human [NovoLIN R] 1 - 30 units SQ TID 11/12/19 [History] Ondansetron [Zofran ODT] 4 mg PO Q6H PRN #30 tab.dis 11/12/19 [Rx] Tamsulosin HCl [Flomax] 0.4 mg PO DAILY #30 cap.er.24h 11/12/19 [Rx] medroxyPROGESTERone Acetate [Medroxyprogesterone Acetate] 5 mg BEDTIME 11/12/19 [History] Past Medical History Gastrointestinal History: Reports: Other (See Below) (Chronic vomiting.) Genitourinary History: Reports: Renal Calculus Musculoskeletal History: Reports: Amputation Other Musculoskeletal History: R gt toe amputated due to ulcer Psychiatric History: Reports: Anxiety, Depression Endocrine/Metabolic History: Reports: Diabetes, Type I Dermatologic History: Reports: Other (See Below) Other Dermatologic History: foot ulcer on left 1 year, right 1 month - Infectious Disease History Infectious Disease History: Reports: Chicken Pox - Past Surgical History Male Surgical History: Reports: Circumcision Musculoskeletal Surgical History: Reports: Amputation Other Musculoskeletal Surgeries/Procedures:: R gt toe Social & Family History - Tobacco Use Tobacco Use Status *Q: Unknown Ever Used Tobacco (Nonsmoker.) - Caffeine Use Caffeine Use: Reports: Coffee, Energy Drinks, Tea - Alcohol Use Alcohol Use History: Yes Alcohol Use Frequency: Rarely - Sexual History Sexual History: Reports: Same Sex Partner Other Sexual History Comment: Patient is transgender and identifies as a she. - Living Situation & Occupation Living situation: Reports: Single Occupation: Employed (Works at [employer]) ED ROS GENERAL - Review of Systems Review Of Systems: See Below Constitutional: Reports: Chills, Malaise HEENT: Reports: No Symptoms Respiratory: Reports: No Symptoms Cardiovascular: Reports: No Symptoms GI/Abdominal: Reports: Abdominal Pain, Nausea, Vomiting : Reports: No Symptoms Musculoskeletal: Reports: Back Pain Skin: Reports: No Symptoms Neurological: Reports: No Symptoms Hematologic/Lymphatic: Reports: No Symptoms Immunologic: Reports: No Symptoms ED EXAM, GI/ABD - Physical Exam Exam: See Below Exam Limited By: No Limitations General Appearance: Alert, WD/WN, Moderate Distress Eyes: Bilateral: Normal Appearance, EOMI Ears: Normal External Exam, Hearing Grossly Normal Nose: Normal Inspection, Normal Mucosa, No Blood Throat/Mouth: Normal Voice, No Airway Compromise, Other (Dry mucous membranes) Head: Atraumatic, Normocephalic Neck: Normal Inspection, Supple, Non-Tender, Full Range of Motion Respiratory/Chest: No Respiratory Distress, Lungs Clear, Normal Breath Sounds, No Accessory Muscle Use, Chest Non-Tender Cardiovascular: Normal Peripheral Pulses, Regular Rate, Rhythm, No Murmur GI/Abdominal Exam: Soft, No Organomegaly, No Mass, Tender (Mild, diffuse tenderness.), Abnormal Bowel Sounds (Bowel sounds are somewhat quiet.), Other (Scaphoid abdomen) Back Exam: Normal Inspection Extremities: Normal Inspection, Normal Range of Motion, Non-Tender, No Pedal Edema, Normal Capillary Refill Neurological: Alert, Oriented, CN II-XII Intact, Normal Cognition, No Motor/Sensory Deficits Psychiatric: Normal Affect Skin Exam: Warm, Intact, Normal Color, No Rash, Diaphoretic (Mildly. Warm sweat.) #1 Interpretation EKG Date: 06/01/20 Time: 18:55 Rhythm: NSR Rate (Beats/Min): 81 [place]: Normal P-Wave: Present QRS: Normal ST-T: Normal QT: Prolonged (Mildly) Comparison: NA - No Prior EKG Course - Vital Signs Last Recorded V/S: Last Vital Signs Temp 36.6 C 06/01/20 18:25 Pulse 79 06/01/20 19:46 Resp 16 06/01/20 19:46 BP 201/92 H 06/01/20 19:46 Pulse Ox 100 06/01/20 19:46 - Orders/Labs/Meds Orders: Active Orders 24 hr Category Date Time Status Accu Check [Blood Glucose Check, Bedside] [RC] ONETIME Care 06/01/20 18:30 Active EKG Documentation Completion [RC] ASDIRECTED Care 06/01/20 18:32 Active Abdomen Pelvis w Cont [CT] Stat Exams 06/01/20 22:04 Taken Promethazine [Phenergan] 25 mg Med 06/02/20 00:19 Active Sodium Chloride 0.9% [Normal Saline] 50 ml IV ONETIME Sodium Chloride 0.9% [Normal Saline] 1,000 ml Med 06/02/20 00:18 Active IV .BOLUS Sodium Chloride 0.9% [Normal Saline] 1,000 ml Med 06/01/20 18:45 Active IV ASDIRECTED Sodium Chloride 0.9% [Saline Flush] Med 06/01/20 18:33 Active 10 ml FLUSH ASDIRECTED PRN Sodium Chloride 0.9% [Saline Flush] Med 06/02/20 00:18 Active 10 ml FLUSH ASDIRECTED PRN Peripheral IV Insertion Adult [OM.PC] Routine Oth 06/01/20 18:33 Ordered Peripheral IV Insertion Adult [OM.PC] Routine Oth 06/02/20 00:18 Ordered EKG 12 Lead [EK] Routine Ther 06/01/20 18:32 Ordered Medication Orders Sodium Chloride (Normal Saline) 1,000 mls @ 150 mls/hr IV ASDIRECTED RAKAN Last Admin: 06/01/20 21:00 Dose: 150 mls/hr Documented by: SAVANNAH Sodium Chloride (Normal Saline) 1,000 mls @ 999 mls/hr IV .BOLUS ONE Stop: 06/02/20 01:18 Promethazine HCl 25 mg/ Sodium (Chloride) 51 mls @ 200 mls/hr IV ONETIME ONE Stop: 06/02/20 00:34 Sodium Chloride (Saline Flush) 10 ml FLUSH ASDIRECTED PRN PRN Reason: Keep Vein Open Last Admin: 06/01/20 19:18 Dose: 10 ml Documented by: MARIA ELENA Sodium Chloride (Saline Flush) 10 ml FLUSH ASDIRECTED PRN PRN Reason: Keep Vein Open Labs: Laboratory Tests 06/01/20 06/01/20 06/01/20 Range/Units 18:51 18:51 18:51 WBC 11.3 (4.5-12.0) X10-3/uL RBC 3.11 L (4.30-5.75) x10(6)uL Hgb 10.1 L (13.5-17.8) g/dL Hct 29.0 L (30.0-51.3) % MCV 93.5 (80-96) fL MCH 32.6 (27.7-33.6) pg MCHC 34.9 (32.2-35.4) g/dL RDW 12.3 (11.5-15.5) % Plt Count 299 (125-369) X10(3)uL MPV 7.4 (7.4-10.4) fL Neut % (Auto) 83.4 H (46-82) % Lymph % (Auto) 11.3 L (13-37) % [place] % (Auto) 4.6 (4-12) % Eos % (Auto) 0 L (1.0-5.0) % Baso % (Auto) 0 (0-2) % Neut # (Auto) 9.5 H (1.6-8.3) # Lymph # (Auto) 1.3 (0.6-5.0) # [place] # (Auto) 0.5 (0.0-1.3) # Eos # (Auto) 0.0 (0.0-0.8) # Baso # (Auto) 0.0 (0.0-0.2) # Sodium 136 (135-145) mmol/L Potassium 4.1 (3.5-5.3) mmol/L Chloride 100 (100-110) mmol/L Carbon Dioxide 26 (21-32) mmol/L BUN 21 H (7-18) mg/dL Creatinine 1.3 (0.70-1.30) mg/dL Est Cr Clr Drug Dosing TNP Estimated GFR (MDRD) > 60 (>60) BUN/Creatinine Ratio 16.2 (9-20) Glucose 252 H (80-116) mg/dL Calcium 8.7 (8.6-10.2) mg/dL Magnesium 1.9 (1.8-2.5) mg/dL Total Bilirubin 0.4 (0.1-1.3) mg/dL AST 27 H D (5-25) IU/L ALT 20 D (12-36) U/L Alkaline Phosphatase 91 (56-112) IU/L Total Protein 7.4 (6.0-8.0) g/dL Albumin 2.8 L (3.5-5.2) g/dL Globulin 4.6 g/dL Albumin/Globulin Ratio 0.6 Lipase 57 L (73-393) U/L Urine Color (YELLOW) Urine Appearance (CLEAR) Urine pH (5.0-6.5) Ur Specific [place] (1.010-1.025) Urine Protein (NEGATIVE) mg/dL Urine Glucose (UA) (NORMAL) mg/dL Urine Ketones (NEGATIVE) mg/dL Urine Occult Blood (NEGATIVE) Urine Nitrite (NEGATIVE) Urine Bilirubin (NEGATIVE) Urine Urobilinogen (NEGATIVE) mg/dL Ur Leukocyte Esterase (NEGATIVE) Urine RBC (0-5) Urine WBC (0-5) Ur Squamous Epith Cells (NS,R,O) Urine Bacteria (NS) Fine Granular Casts (NS) 06/01/20 Range/Units 19:05 WBC (4.5-12.0) X10-3/uL RBC (4.30-5.75) x10(6)uL Hgb (13.5-17.8) g/dL Hct (30.0-51.3) % MCV (80-96) fL MCH (27.7-33.6) pg MCHC (32.2-35.4) g/dL RDW (11.5-15.5) % Plt Count (125-369) X10(3)uL MPV (7.4-10.4) fL Neut % (Auto) (46-82) % Lymph % (Auto) (13-37) % [place] % (Auto) (4-12) % Eos % (Auto) (1.0-5.0) % Baso % (Auto) (0-2) % Neut # (Auto) (1.6-8.3) # Lymph # (Auto) (0.6-5.0) # [place] # (Auto) (0.0-1.3) # Eos # (Auto) (0.0-0.8) # Baso # (Auto) (0.0-0.2) # Sodium (135-145) mmol/L Potassium (3.5-5.3) mmol/L Chloride (100-110) mmol/L Carbon Dioxide (21-32) mmol/L BUN (7-18) mg/dL Creatinine (0.70-1.30) mg/dL Est Cr Clr Drug Dosing Estimated GFR (MDRD) (>60) BUN/Creatinine Ratio (9-20) Glucose (80-116) mg/dL Calcium (8.6-10.2) mg/dL Magnesium (1.8-2.5) mg/dL Total Bilirubin (0.1-1.3) mg/dL AST (5-25) IU/L ALT (12-36) U/L Alkaline Phosphatase (56-112) IU/L Total Protein (6.0-8.0) g/dL Albumin (3.5-5.2) g/dL Globulin g/dL Albumin/Globulin Ratio Lipase (73-393) U/L Urine Color Yellow (YELLOW) Urine Appearance Slightly cloudy (CLEAR) Urine pH 6.0 (5.0-6.5) Ur Specific [place] 1.020 (1.010-1.025) Urine Protein 500 H (NEGATIVE) mg/dL Urine Glucose (UA) >1000 H (NORMAL) mg/dL Urine Ketones Negative (NEGATIVE) mg/dL Urine Occult Blood Large H (NEGATIVE) Urine Nitrite Negative (NEGATIVE) Urine Bilirubin Negative (NEGATIVE) Urine Urobilinogen Normal (NEGATIVE) mg/dL Ur Leukocyte Esterase Negative (NEGATIVE) Urine RBC 5-10 H (0-5) Urine WBC 0-5 (0-5) Ur Squamous Epith Cells Occasional (NS,R,O) Urine Bacteria Few H (NS) Fine Granular Casts Rare H (NS) Meds: Medications Generic Name Dose Route Start Last Admin Trade Name Freq PRN Reason Stop Dose Admin Sodium Chloride 1,000 mls @ 150 mls/hr 06/01/20 18:45 06/01/20 21:00 Normal Saline IV 150 mls/hr ASDIRECTED RAKAN Administration Sodium Chloride 1,000 mls @ 999 mls/hr 06/02/20 00:18 Normal Saline IV 06/02/20 01:18 .BOLUS ONE Promethazine HCl 25 mg/ Sodium 51 mls @ 200 mls/hr 06/02/20 00:19 Chloride IV 06/02/20 00:34 ONETIME ONE Sodium Chloride 10 ml 06/01/20 18:33 06/01/20 19:18 Saline Flush FLUSH 10 ml ASDIRECTED PRN Administration Keep Vein Open Sodium Chloride 10 ml 06/02/20 00:18 Saline Flush FLUSH ASDIRECTED PRN Keep Vein Open Discontinued Medications Generic Name Dose Route Start Last Admin Trade Name Freq PRN Reason Stop Dose Admin Diphenhydramine HCl 50 mg 06/01/20 18:34 06/01/20 19:14 Benadryl IVPUSH 06/01/20 18:35 50 mg ONETIME ONE Administration Sodium Chloride 1,000 mls @ 999 mls/hr 06/01/20 18:33 06/01/20 19:17 Normal Saline IV 06/01/20 19:33 999 mls/hr .BOLUS ONE Administration Prochlorperazine Edisylate 10 52 mls @ 150 mls/hr 06/01/20 18:34 06/01/20 19:15 mg/ Sodium Chloride IV 06/01/20 18:54 150 mls/hr ONETIME ONE Administration Iopamidol 100 ml 06/01/20 22:10 06/01/20 22:18 Isovue-370 (76%) IV 06/01/20 22:11 100 ml . DIRECTED ONE Administration Metoclopramide HCl 10 mg 06/01/20 23:55 06/01/20 23:59 Reglan IM 06/01/20 23:56 10 mg ONETIME ONE Administration Ondansetron HCl 4 mg 06/01/20 21:53 06/01/20 22:00 Zofran IVPUSH 06/01/20 21:54 4 mg ONETIME ONE Administration - Radiology Interpretation Free Text/Narrative:: CT scan of the abdomen and pelvis shows questionable nonspecific enteritis. There is a small amount of free fluid in the pelvis that may be associated with this enteritis and there is bilateral mild inguinal nonspecific lymphadenopathy. This was per the [facility] radiologist. - Re-Assessments/Exams Free Text/Narrative Re-Assessment/Exam: 06/01/20 19:45: Patient has received 1 L normal saline as a bolus. She has had no further emesis. She is resting comfortably. On observing the patient for another 1-2 hours and reevaluating her at that time. Her blood tests are reassuring. She has remained vitally stable. She does have some anemia. We are awaiting a urinalysis. 06/01/20 22:00: The patient is easily awakened and she reports that she feels better. Her pain is now down to 3/10 but she still has some mild nausea. There has been no more emesis. Due to the persisting pain, I will order a CT scan of her abdomen and pelvis with IV contrast. I will also give the patient Zofran 4 mg IV. We will continue IV fluid hydration for now. 06/01/20 23:15: The patient remains vitally stable. She has been resting and sleeping comfortably. No more emesis. Upon awakening, she reports that her nausea has resolved. She really feels that her abdominal pain has resolved as well. Her abdomen is soft, nontender to palpation with no rebound or guarding. She feels that she is ready for discharge at this point. I will discharge patient with a take home pack of Zofran. I have discussed with the patient that this could represent cannabis hyperemesis syndrome and I have strongly suggested that she stop marijuana use. Her blood pressure was also elevated in the emergency department. It improved throughout her emergency department visit. She is also urged to follow up with her primary provider this next week. Precautions and reasons for return to the emergency department were discussed w ith the patient while she was in the emergency department ever detailed in the patient's discharge instructions. 06/02/20 00:15: Patient was being readied for discharge and she began to have more nausea and abdominal cramping in then had another episode of emesis about 100 mL. She was complaining of diffuse abdominal cramping and ongoing nausea. The IV had are been discontinued at this point. She has been given Reglan earlier IM IV had been discontinued but her symptoms are just not improving and at this point, I think she has failed a trial at discharge and I think she will need admission with further IV fluid hydration and control of her nausea. I have discussed this with the patient and she would be in agreement with this plan. It is unclear whether the patient will need a greater then 2 midnight hospital stay. She will need an observatory period initially to determine this and to determine if anything more serious will manifest itself. I will place admission orders. The care the patient will be turned over to Dr. Reece at 7 AM on 06/02/2020. Departure - Departure Time of Disposition: 00:30 Disposition: Refer to Observation Condition: Fair Clinical Impression: Gastroenteritis, Dehydration, Hypertension, uncontrolled Vomiting Qualifiers: Vomiting type: unspecified Vomiting Intractability: intractable Nausea presence: with nausea Qualified Code(s): R11.2 - Nausea with vomiting, unspecified Abdominal pain Qualifiers: Abdominal location: generalized Qualified Code(s): R10.84 - Generalized abdominal pain - Discharge Information Referrals: Shayy Montiel NP [Primary Care Provider] - Forms: ED Department Discharge Sepsis Event Note (ED) - Focused Exam Vital Signs: Vital Signs Temp Pulse Resp BP Pulse Ox 06/01/20 19:46 79 16 201/92 H 100 06/01/20 19:00 82 16 208/95 H 100 06/01/20 18:25 36.6 C 92 16 205/91 H 100 - My Orders Last 24 Hours: My Active Orders 06/01/20 18:30 Accu Check [Blood Glucose Check, Bedside] [RC] ONETIME 06/01/20 18:32 EKG Documentation Completion [RC] ASDIRECTED EKG 12 Lead [EK] Routine 06/01/20 18:33 Sodium Chloride 0.9% [Saline Flush] 10 ml FLUSH ASDIRECTED PRN Peripheral IV Insertion Adult [OM.PC] Routine 06/01/20 18:45 Sodium Chloride 0.9% [Normal Saline] 1,000 ml IV ASDIRECTED 06/01/20 22:04 Abdomen Pelvis w Cont [CT] Stat 06/02/20 00:18 Sodium Chloride 0.9% [Normal Saline] 1,000 ml IV .BOLUS Sodium Chloride 0.9% [Saline Flush] 10 ml FLUSH ASDIRECTED PRN Peripheral IV Insertion Adult [OM.PC] Routine 06/02/20 00:19 Promethazine [Phenergan] 25 mg Sodium Chloride 0.9% [Normal Saline] 50 ml IV ONETIME - Assessment/Plan Last 24 Hours: My Active Orders 06/01/20 18:30 Accu Check [Blood Glucose Check, Bedside] [RC] ONETIME 06/01/20 18:32 EKG Documentation Completion [RC] ASDIRECTED EKG 12 Lead [EK] Routine 06/01/20 18:33 Sodium Chloride 0.9% [Saline Flush] 10 ml FLUSH ASDIRECTED PRN Peripheral IV Insertion Adult [OM.PC] Routine 06/01/20 18:45 Sodium Chloride 0.9% [Normal Saline] 1,000 ml IV ASDIRECTED 06/01/20 22:04 Abdomen Pelvis w Cont [CT] Stat 06/02/20 00:18 Sodium Chloride 0.9% [Normal Saline] 1,000 ml IV .BOLUS Sodium Chloride 0.9% [Saline Flush] 10 ml FLUSH ASDIRECTED PRN Peripheral IV Insertion Adult [OM.PC] Routine 06/02/20 00:19 Promethazine [Phenergan] 25 mg Sodium Chloride 0.9% [Normal Saline] 50 ml IV ONETIME
[2020-06-01] MEDS ORDERED: Sodium Chloride 0.9% 1,000 ML IV ONE (18:33)
[2020-06-01] MEDS ORDERED: diphenhydrAMINE 50 MG/ML SDV IVPUSH ONE (18:34)
[2020-06-01] MEDS ORDERED: Prochlorperazine 10 MG in Sodium Chloride 0.9% 50 ML IV ONE (18:34)
[2020-06-01] MEDS: Sodium Chloride 0.9% 10 ML Syringe FLUSH PRN (19:18)
[2020-06-01] MEDS: Sodium Chloride 0.9% 1,000 ML IV SCH (21:00)
[2020-06-01] MEDS ORDERED: Ondansetron 4 MG/2 ML SDV IVPUSH ONE (21:53)
[2020-06-01] MEDS ORDERED: Iopamidol 755 Mg/ML 100 ML Bottle IV ONE (22:10)
[2020-06-01] MEDS ORDERED: Metoclopramide 10 MG/2 ML SDV IM ONE (23:55)
[2020-06-02] MEDS ORDERED: Sodium Chloride 0.9% 1,000 ML IV ONE (00:18)
[2020-06-02] MEDS ORDERED: Sodium Chloride 0.9% 10 ML Syringe FLUSH PRN (00:18)
[2020-06-02] MEDS ORDERED: Promethazine 25 MG in Sodium Chloride 0.9% 50 ML IV ONE (00:19)
[2020-06-02] MEDS ORDERED: Propofol 200 MG/20 ML SDV IV ONE (00:36)
[2020-06-02] MEDS: Pantoprazole 40 MG Vial IVPUSH SCH ×2 (01:21→12:25)
[2020-06-02] MEDS: Sodium Chloride 0.9% 1,000 ML IV SCH ×4 (01:36→23:10)
[2020-06-02] MEDS ORDERED: 50% Dextrose in Water 50 ML Syringe IVPUSH PRN ×5 (02:24→11:47)
[2020-06-02] MEDS ORDERED: Glucagon,Human Recombinant 1 MG Vial IM PRN ×5 (02:24→11:47)
[2020-06-02] MEDS ORDERED: Insulin Lispro 100 Unit/ML 3 ML KwikPen SUBCUT SCH (02:30)
[2020-06-02] MEDS ORDERED: Insulin Lispro 100 Unit/ML 3 ML KwikPen SUBCUT ONE (02:52)
[2020-06-02] MEDS: Insulin Lispro 100 Unit/ML 3 ML KwikPen SUBCUT SCH ×5 (02:54→20:59)
[2020-06-02] MEDS: Ondansetron 4 MG/2 ML SDV IV PRN (06:31)
[2020-06-02] MEDS ORDERED: Insulin Degludec 200 UNIT/ML PEN SQ SCH (09:00)
[2020-06-02] MEDS ORDERED: Spironolactone 50 MG Tab PO SCH (09:00)
[2020-06-02] MEDS ORDERED: Insulin Glargine,Human Rec. Analog 100 Units/ML 3 ML Pen SUBCUT SCH ×2 (09:45→10:15)
[2020-06-02] MEDS ORDERED: Insulin Glargine,Human Rec. Analog 100 Units/ML 3 ML Pen SUBCUT ONE (09:54)
[2020-06-02] MEDS: Promethazine 12.5 MG in Sodium Chloride 0.9% 50 ML IV PRN ×2 (10:06→17:14)
[2020-06-02] MEDS: Spironolactone 50 MG Tab PO SCH ×2 (10:28→20:56)
--- NOTE | 2020-06-02 11:18 | HP ---
ADMISSION DATE: 06/02/2020 CHIEF COMPLAINT: Nausea, vomiting, abdominal pain. HISTORY OF PRESENT ILLNESS: Rickey Corral) is a 29-year-old transgender male to female woman with a history of type 1 diabetes requiring right great toe amputation for osteomyelitis, hormonal treatment for transgender augmentation, and a history of nephrolithiasis. She was admitted from the emergency room because of epigastric pain, nausea, and vomiting. According to the patient, she has had intermittent episodes of this for the past 8 months. She was placed on omeprazole in the past that she said helped temporarily, but then it seemed to quit working. She has not had fever, chills, sweats, or symptoms of acute infection. She has not noticed any blood in the vomit or blood in the stools. No dark stools. PAST MEDICAL HISTORY: Hormonal treatment for gender transformation male to female. She has also had depression, type 1 diabetes, diabetic foot ulcers with right toe amputation, and intermittent low back pain. She has been diagnosed with gastritis and possible peptic ulcer disease, but states she has never had a gastroscopy. MEDICATIONS: 1. Tresiba 20 units at bedtime. 2. Novolin R 2 units t.i.d. p.r.n. 3. Estrace 4 mg a.m., 2 mg noon. 4. Medroxyprogesterone acetate 10 mg p.o. daily. 5. Lexapro 20 mg daily. 6. Omeprazole 20 mg daily. 7. Aldactone 100 mg daily. 8. Zofran 4 mg t.i.d. p.r.n. 9. Spironolactone 100 mg twice a day. 10.She takes Flomax 0.4 mg daily. ALLERGIES: None known. HABITS: Nonsmoker. Occasional alcohol. REVIEW OF SYSTEMS: GENERAL: No seizure, syncope, or recent significant weight changes. SKIN: Negative for rash. She does have the ulcer on the right foot that is being debrided intermittently by Dr. Owens. She has absence of the right great toe and smaller skin callus without ulceration left great toe MTP area. HEENT: She has not had recent change in hearing or vision. She does have apparently diabetic nephropathy. No cough, dyspnea, chest pain, palpitations, lower abdominal pain, diarrhea, hematochezia or melena, hematuria. She does have chronic edema of lower extremities, right greater than left. PHYSICAL EXAMINATION: GENERAL: She is alert, but pale and drowsy when being examined. VITAL SIGNS: Blood pressure of 211/92, pulse 109, respirations 18, O2 saturation 96% on room air. SKIN: Shows callus and slight ulceration plantar surface right great toe MTP. The toe is surgically absent. She has similar callused and thickening plantar surface of her left great toe MTP without ulceration. There are scattered excoriations over her shins. HEENT: TMs are clear. Throat is clear. LUNGS: Clear to the bases. HEART: Regular without murmur or gallop. ABDOMEN: Normal bowel sounds. Soft. She has slight tenderness in the epigastric area. No mass, guarding, or rebound. No organomegaly. EXTREMITIES: Show intact dorsalis pedis and posterior tibial pulses. She has 2+ edema at the right ankle, 1+ edema at the left ankle, absent right great toe with the callus and ulceration plantar right foot and callus, plantar left foot. LABORATORY DATA: White count 9600; hemoglobin 8.9, this is down from 10.1 yesterday with normal electrolytes; BUN 19; creatinine 1.3; glucose 257. Urinalysis positive for glucosuria and 5 to 10 red cells. ASSESSMENT: 1. Nausea, vomiting, abdominal pain, epigastric area consistent with gastritis. Drop in hemoglobin suggests possible gastrointestinal bleed. 2. Uncontrolled type 1 diabetes with diabetic peripheral neuropathy, right foot ulcer and diabetic retinopathy. 3. 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 4. Markedly elevated blood pressure. On reviewing past outpatient blood pressures, they have been normal. 5. Generalized anxiety disorder with depression. PLAN: We will continue to hydrate her with IV fluids, antinausea medications. I will add Carafate to her current Protonix. Increase diet as tolerated and treat her elevated blood pressure acutely. /[id number] JESUS/MICHAELL
[2020-06-02] MEDS ORDERED: Sucralfate 1 GM Tab PO SCH (11:30)
[2020-06-02] MEDS: Sucralfate 1 GM Tab PO SCH ×3 (12:05→20:56)
[2020-06-02] MEDS: Estradiol 1 MG Tab PO SCH (12:35)
[2020-06-03] MEDS: Pantoprazole 40 MG Vial IVPUSH SCH ×2 (00:35→13:36)
[2020-06-03] MEDS: Promethazine 12.5 MG in Sodium Chloride 0.9% 50 ML IV PRN ×2 (01:19→07:44)
[2020-06-03] MEDS: Sodium Chloride 0.9% 10 ML Syringe FLUSH PRN (01:25)
[2020-06-03] MEDS: Ondansetron 4 MG/2 ML SDV IV PRN ×2 (03:48→13:29)
[2020-06-03] MEDS ORDERED: hydrOXYzine HCl 50 MG/ML SDV IM PRN (04:51)
[2020-06-03] MEDS: Estradiol 1 MG Tab PO SCH ×3 (06:41→13:17)
[2020-06-03] MEDS: Sodium Chloride 0.9% 1,000 ML IV SCH ×3 (07:36→23:05)
[2020-06-03] MEDS: Insulin Lispro 100 Unit/ML 3 ML KwikPen SUBCUT SCH ×4 (08:03→20:23)
--- NOTE | 2020-06-03 08:16 | PCM.CONS ---
H&P History of Present Illness - General Date of Service: 06/03/20 Admit Problem/Dx: Admission Diagnosis/Problem Admission Diagnosis/Problem Vomiting - History of Present Illness Initial Comments - Free Text/Narative: Pt admitted with a hx of epigastric abd pain. Has been going on for sometime and the pt had been hospitalized in the past in [place]. He has poorly controlled diabetes as well. A PPI has helped in the past but is not helpful now. Has nausea and vomiting no blood, just bile. Middle Abdomen Pain Score (Numeric/FACES): 7 - Related Data Allergies/Adverse Reactions: Allergies Allergy/AdvReac Type Severity Reaction Status Date / Time No Known Allergies Allergy Verified 06/01/20 18:25 Home Medications: Home Meds Insulin Degludec [Tresiba Flextouch U-100] 20 units SQ DAILY 02/04/19 [History] Spironolactone [Aldactone] 100 mg PO BID 02/04/19 [History] estradioL [Estradiol] 4 mg PO QAM 02/04/19 [History] Acetaminophen/HYDROcodone [[place] 325-5 MG] 1 tab PO Q6H PRN #8 tablet 11/12/19 [Rx] Insulin Regular, Human [NovoLIN R] 1 - 30 units SQ TID 11/12/19 [History] Ondansetron [Zofran ODT] 4 mg PO Q6H PRN #30 tab.dis 11/12/19 [Rx] Tamsulosin HCl [Flomax] 0.4 mg PO DAILY #30 cap.er.24h 11/12/19 [Rx] medroxyPROGESTERone Acetate [Medroxyprogesterone Acetate] 5 mg PO BEDTIME 11/12/19 [History] estradioL [Estradiol] 2 mg PO PCLUNCH 06/02/20 [History] Past Medical History HEENT History: Reports: None Cardiovascular History: Reports: None Respiratory History: Reports: None Gastrointestinal History: Reports: Other (See Below) Genitourinary History: Reports: Renal Calculus Musculoskeletal History: Reports: Amputation Other Musculoskeletal History: R gt toe amputated due to ulcer Neurological History: Reports: None Psychiatric History: Reports: Anxiety, Depression Other Psychiatric History: HRT Endocrine/Metabolic History: Reports: Diabetes, Type I Hematologic History: Reports: None Dermatologic History: Reports: Other (See Below) Other Dermatologic History: foot ulcer on left 1 year, right 1 month - Infectious Disease History Infectious Disease History: Reports: Chicken Pox - Past Surgical History HEENT Surgical History: Reports: None Cardiovascular Surgical History: Reports: None Respiratory Surgical History: Reports: None Male Surgical History: Reports: Circumcision Neurological Surgical History: Reports: None Musculoskeletal Surgical History: Reports: Amputation Other Musculoskeletal Surgeries/Procedures:: R gt toe Social & Family History - Family History Family Medical History: Noncontributory - Tobacco Use Tobacco Use Status *Q: Unknown Ever Used Tobacco - Caffeine Use Caffeine Use: Reports: Coffee - Recreational Drug Use Recreational Drug Use: Yes Recreational Drug Type: Reports: Marijuana/Hashish Recreational Drug Use Frequency: Daily - Sexual History Sexual History: Reports: Same Sex Partner Other Sexual History Comment: Patient is transgender and identifies as a she. - Living Situation & Occupation Living situation: Reports: Single Occupation: Employed (Works at [employer]) H&P Review of Systems - Review of Systems: Review Of Systems: See Below Gastrointestinal: Reports: Abdominal Pain, Nausea Skin: Reports: Wound Exam - Exam Exam: See Below - Vital Signs Vital Signs: Last Vital Signs Temp 98 F 06/03/20 06:42 Pulse 94 06/03/20 06:42 Resp 18 06/03/20 06:42 BP 187/106 H 06/03/20 06:42 Pulse Ox 100 06/03/20 06:42 Weight: 86.183 kg - Exam General: Alert, Oriented Lungs: Clear to Auscultation, Normal Respiratory Effort Cardiovascular: Regular Rate, Regular Rhythm GI/Abdominal Exam: Normal Bowel Sounds, Soft, Tender - Patient Data Lab Results Last 24 hrs: Laboratory Results - last 24 hr 06/02/20 06/02/20 06/02/20 Range/Units 02:14 08:28 11:27 WBC (4.5-12.0) X10-3/uL RBC (4.30-5.75) x10(6)uL Hgb (13.5-17.8) g/dL Hct (30.0-51.3) % MCV (80-96) fL MCH (27.7-33.6) pg MCHC (32.2-35.4) g/dL RDW (11.5-15.5) % Plt Count (125-369) X10(3)uL MPV (7.4-10.4) fL Neut % (Auto) (46-82) % Lymph % (Auto) (13-37) % Amador % (Auto) (4-12) % Eos % (Auto) (1.0-5.0) % Baso % (Auto) (0-2) % Neut # (Auto) (1.6-8.3) # Lymph # (Auto) (0.6-5.0) # Amador # (Auto) (0.0-1.3) # Eos # (Auto) (0.0-0.8) # Baso # (Auto) (0.0-0.2) # Creatinine (0.70-1.30) mg/dL Est Cr Clr Drug Dosing mL/min Estimated GFR (MDRD) (>60) POC Glucose 334 H 280 H 327 H (74-100) mg/dL Vitamin B12 (193-986) pg/mL 06/02/20 06/02/20 06/03/20 Range/Units 16:58 20:54 05:30 WBC (4.5-12.0) X10-3/uL RBC (4.30-5.75) x10(6)uL Hgb (13.5-17.8) g/dL Hct (30.0-51.3) % MCV (80-96) fL MCH (27.7-33.6) pg MCHC (32.2-35.4) g/dL RDW (11.5-15.5) % Plt Count (125-369) X10(3)uL MPV (7.4-10.4) fL Neut % (Auto) (46-82) % Lymph % (Auto) (13-37) % Amador % (Auto) (4-12) % Eos % (Auto) (1.0-5.0) % Baso % (Auto) (0-2) % Neut # (Auto) (1.6-8.3) # Lymph # (Auto) (0.6-5.0) # Amador # (Auto) (0.0-1.3) # Eos # (Auto) (0.0-0.8) # Baso # (Auto) (0.0-0.2) # Creatinine (0.70-1.30) mg/dL Est Cr Clr Drug Dosing mL/min Estimated GFR (MDRD) (>60) POC Glucose 242 H 278 H 355 H (74-100) mg/dL Vitamin B12 (193-986) pg/mL 06/03/20 06/03/20 06/03/20 Range/Units 06:25 06:25 06:25 WBC 9.0 (4.5-12.0) X10-3/uL RBC 2.85 L (4.30-5.75) x10(6)uL Hgb 9.4 L (13.5-17.8) g/dL Hct 27.0 L (30.0-51.3) % MCV 95.0 (80-96) fL MCH 32.9 (27.7-33.6) pg MCHC 34.6 (32.2-35.4) g/dL RDW 12.1 (11.5-15.5) % Plt Count 268 (125-369) X10(3)uL MPV 7.8 (7.4-10.4) fL Neut % (Auto) 81.9 (46-82) % Lymph % (Auto) 14.1 (13-37) % Amador % (Auto) 3.3 L (4-12) % Eos % (Auto) 0 L (1.0-5.0) % Baso % (Auto) 0 (0-2) % Neut # (Auto) 7.4 (1.6-8.3) # Lymph # (Auto) 1.3 (0.6-5.0) # Amador # (Auto) 0.3 (0.0-1.3) # Eos # (Auto) 0.0 (0.0-0.8) # Baso # (Auto) 0.0 (0.0-0.2) # Creatinine 1.4 H (0.70-1.30) mg/dL Est Cr Clr Drug Dosing 84.68 mL/min Estimated GFR (MDRD) 60 (>60) POC Glucose (74-100) mg/dL Vitamin B12 439 (193-986) pg/mL Result Diagrams: 06/03/20 06:25 06/03/20 06:25 Sepsis Event Note - Evaluation Sepsis Screening Result: No Definite Risk - Focused Exam Vital Signs: Vital Signs Temp Pulse Resp BP Pulse Ox 06/03/20 06:42 98 F 94 18 187/106 H 100 06/03/20 00:00 97.5 F 87 16 161/91 H 99 06/02/20 21:00 98 F 93 16 181/100 H 99 *Q Meaningful Use (ADM) - VTE *Q VTE Pharmacological Contraindications *Q: Risk of Bleeding Consult PN Assessment/Plan Procedures: Procedures ASSAY OF LACTIC ACID (11/12/19) C-REACTIVE PROTEIN (11/12/19) COMPLETE CBC W/AUTO DIFF WBC (11/12/19) CRITICAL CARE FIRST HOUR (02/03/19) CT ABD & PELVIS W/O CONTRAST (11/12/19) DRUG TEST PRSMV DIR OPT OBS (11/12/19) EMERGENCY DEPT VISIT (11/12/19) EMERGENCY DEPT VISIT (11/12/19) HYDRATE IV INFUSION ADD-ON (11/12/19) METABOLIC PANEL TOTAL CA (11/12/19) MRI LWR EXTREMITY W/O&W/DYE (07/05/18) ROUTINE VENIPUNCTURE (11/12/19) THER/PROPH/DIAG INJ IV PUSH (11/12/19) TX/PRO/DX INJ NEW DRUG ADDON (11/12/19) URINALYSIS AUTO W/SCOPE (11/12/19) (1) Abdominal pain SNOMED Code(s): 27136745 Code(s): R10.9 - UNSPECIFIED ABDOMINAL PAIN Current Visit: Yes Qualifiers: Abdominal location: epigastric Qualified Code(s): R10.13 - Epigastric pain Problem List Initiated/Reviewed/Updated: Yes Plan: EGD Procedure and risks explained to the pt to include bleeding infection or perforation. Expressed understanding and asks us to proceed.
[2020-06-03] MEDS: Sucralfate 1 GM Tab PO SCH ×4 (09:00→20:19)
[2020-06-03] MEDS ORDERED: amLODIPine 2.5 MG Tab PO SCH (09:00)
--- NOTE | 2020-06-03 11:02 | PN ---
DATE SEEN: 06/03/2020 HISTORY: Rickey Jones) is a 29-year-old transgender male to female woman who was admitted with nausea, vomiting, epigastric pain, and suspected gastritis. She was placed n.p.o. and put on IV fluids and her pain improved. She had a notable hemoglobin drop from 10.1 to 8.9 g; however, no visible blood or melena was noted. Also of significance includes blood sugars have been running extremely high in the upper 200 to 350 range and blood pressure in the 190 to 200 systolic range. This morning, she states that she did not sleep well from intermittent abdominal discomfort. She complains of thirst as she has now been n.p.o. PHYSICAL EXAMINATION: VITAL SIGNS: Blood pressure is 187/106, pulse 94 and regular, respirations 18, temp 98. SKIN: Pale. No rash noted. MOUTH: Dry. LUNGS: Clear. HEART: Regular. ABDOMEN: Active bowel sounds, soft. She does report slight tenderness in the epigastric area. No mass, guarding, rebound, or organomegaly is noted. EXTREMITIES: She has chronic edema of the right greater than left lower extremity. LABORATORY DATA: White count 9000, hemoglobin 9.4, MCV 95, platelets 268. Creatinine 1.4. Glucose 355. B12 of 439. ASSESSMENT: 1. Epigastric pain, nausea, vomiting, and drop in hemoglobin consistent with gastritis/peptic ulcer disease. 2. Acute hypertension, not on antihypertensives. 3. Type 1 diabetes, poorly controlled. 4. 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 PLAN: I have consulted with Dr. Owens, who will see her for evaluation today. I anticipate a discharge to home as soon as she can tolerate oral intake adequately. /[id number] JESUS/MARC
--- NOTE | 2020-06-03 12:18 | PCM.OPNOTE ---
- General Post-Op/Procedure Note Date of Surgery/Procedure: 06/03/20 Operative Procedure(s): egd with bx Findings: gastritis. bile reflux Pre Op Diagnosis: epigastic abd pain. emesis Post-Op Diagnosis: gastritis. bile reflux Anesthesia Technique: ROWAN Primary Surgeon: Marcello Owens Anesthesia Provider: Luis Carlos Pathology: stomach Complications: None Condition: Good Free Text/Narrative:: Intake & Output 06/02/20 06/03/20 06/03/20 22:59 06:59 14:59 Intake Total 2291 979 Output Total 600 800 500 Balance 1691 179 -500 see dictation
[2020-06-03] MEDS: Spironolactone 50 MG Tab PO SCH ×2 (13:17→20:20)
[2020-06-03] MEDS: Insulin Glargine,Human Rec. Analog 100 Units/ML 3 ML Pen SUBCUT SCH (13:19)
[2020-06-03] MEDS: Metoclopramide 5 MG Tab PO SCH ×2 (18:06→20:18)
[2020-06-04] MEDS: Pantoprazole 40 MG Vial IVPUSH SCH (00:59)
--- NOTE | 2020-06-04 07:23 | OR ---
DATE OF OPERATION: 06/03/2020 SURGEON: Marcello Owens MD PROCEDURE PERFORMED: Esophagogastroduodenoscopy with cold forceps biopsy. PREOPERATIVE DIAGNOSIS: History of epigastric abdominal pain and emesis. POSTOPERATIVE DIAGNOSIS: Gastritis and what appears to be bile reflux. INDICATIONS FOR PROCEDURE: This is a 29-year-old individual, currently undergoing [id number] gender transition, who has a history of epigastric abdominal pain and vomiting. He had been hospitalized at [facility] in [place] and presented to the emergency room recently here at [place] with similar complaints and was admitted. He was also noted to have a slight drop in his hemoglobin, and he was offered and accepted an EGD. DESCRIPTION OF PROCEDURE: After an excellent IV sedation was administered, the bite block was inserted. Flexible endoscope was passed without difficulty down the patient's esophagus into the stomach. The stomach was insufflated. Scope passed through the pylorus to second portion of the duodenum and slowly withdrawn. The duodenum was unremarkable. Stomach had a coating of bilious- colored material which may have precluded any small lesions. The gross profile was essentially unremarkable. There were some patches of what appeared to be mild gastritis which were biopsied. Esophagus unremarkable. The patient tolerated the procedure well and was taken to recovery. The results will be sent to the patient via a letter. /[id number] ED/MARC
[2020-06-04] MEDS: Ondansetron 4 MG/2 ML SDV IV PRN (07:44)
[2020-06-04 08:10] LABS: IRON BIND.CAP.(TIBC) 150 ug/dL (250-450); IRON SATURATION 63 % (15-55); IRON, SERUM 95 ug/dL (38-169); UIBC 55 ug/dL (111-343)
[2020-06-04] MEDS: Metoclopramide 5 MG Tab PO SCH (08:18)
[2020-06-04] MEDS: Insulin Lispro 100 Unit/ML 3 ML KwikPen SUBCUT SCH ×2 (08:21→11:36)
[2020-06-04] MEDS ORDERED: amLODIPine 2.5 MG Tab PO SCH (09:00)
[2020-06-04] MEDS ORDERED: Escitalopram 20 MG Tab PO SCH (09:00)
[2020-06-04] MEDS: Insulin Glargine,Human Rec. Analog 100 Units/ML 3 ML Pen SUBCUT SCH (09:31)
--- NOTE | 2020-06-04 10:06 | PCM.SURGPN ---
- General Info Date of Service: 06/04/20 POD#: 1 Functional Status: Reports: Other (Moving slowly in terms of diet. Reports that mornings are rough.) - Patient Data Vitals - Most Recent: Last Vital Signs Temp 98 F 06/04/20 01:00 Pulse 87 06/04/20 01:00 Resp 18 06/04/20 01:00 BP 152/82 H 06/04/20 01:00 Pulse Ox 99 06/04/20 01:00 Weight - Most Recent: 86.183 kg I&O - Last 24 Hours: Intake & Output 06/03/20 06/04/20 06/04/20 22:59 06:59 14:59 Intake Total 845 850 466 Balance 845 850 466 Lab Results Last 24 Hrs: Laboratory Results - last 24 hr 06/03/20 06/03/20 06/03/20 Range/Units 06:25 06:25 06:25 Retic Count 1.7 (0.6-2.6) % POC Glucose (74-100) mg/dL Iron 95 (38-169) ug/dL TIBC 150 L (250-450) ug/dL Iron Saturation 63 H (15-55) % Unsaturated IBC 55 L (111-343) ug/dL Ferritin 476 H (30-400) ng/mL 06/03/20 06/03/20 06/03/20 Range/Units 11:21 17:35 20:15 Retic Count (0.6-2.6) % POC Glucose 275 H 231 H 153 H (74-100) mg/dL Iron (38-169) ug/dL TIBC (250-450) ug/dL Iron Saturation (15-55) % Unsaturated IBC (111-343) ug/dL Ferritin (30-400) ng/mL 06/04/20 Range/Units 06:59 Retic Count (0.6-2.6) % POC Glucose 289 H (74-100) mg/dL Iron (38-169) ug/dL TIBC (250-450) ug/dL Iron Saturation (15-55) % Unsaturated IBC (111-343) ug/dL Ferritin (30-400) ng/mL Med Orders - Current: Current Medications Amlodipine Besylate (Norvasc) 2.5 mg PO DAILY [facility] Dextrose/Water (Dextrose 50% In Water) 50 ml IVPUSH ASDIRECTED PRN PRN Reason: Hypoglycemia Escitalopram Oxalate (Lexapro) 20 mg PO DAILY [facility] Estradiol (Estradiol) 4 mg PO DAILY [facility] Last Admin: 06/03/20 09:00 Dose: Not Given Documented by: Estradiol (Estradiol) 4 mg PO DAILY@1300 [facility] Glucagon (Glucagen) 1 mg IM ASDIRECTED PRN PRN Reason: Hypoglycemia Insulin Glargine (Lantus Solostar) 30 units SUBCUT DAILY [facility] Last Admin: 06/04/20 09:31 Dose: 30 units Documented by: Insulin Human Lispro (Humalog) 0 unit SUBCUT QIDACANDBED [facility]; Protocol Last Admin: 06/04/20 08:21 Dose: 6 units Documented by: Medroxyprogesterone Acetate (Provera) 10 mg PO BEDTIME [facility] Last Admin: 06/03/20 20:21 Dose: 10 mg Documented by: Metoclopramide HCl (Reglan) 5 mg PO QIDACANDBED [facility] Last Admin: 06/04/20 08:18 Dose: 5 mg Documented by: Pantoprazole Sodium (Protonix) 40 mg PO 0600 [facility] Spironolactone (Aldactone) 100 mg PO BID [facility] Last Admin: 06/03/20 20:20 Dose: 100 mg Documented by: Discontinued Medications Amlodipine Besylate (Norvasc) 2.5 mg PO DAILY [facility] Last Admin: 06/03/20 13:19 Dose: 2.5 mg Documented by: Dextrose/Water (Dextrose 50% In Water) 50 ml IVPUSH ASDIRECTED PRN PRN Reason: Hypoglycemia Dextrose/Water (Dextrose 50% In Water) 50 ml IVPUSH ASDIRECTED PRN PRN Reason: Hypoglycemia Dextrose/Water (Dextrose 50% In Water) 50 ml IVPUSH ASDIRECTED PRN PRN Reason: Hypoglycemia Dextrose/Water (Dextrose 50% In Water) 50 ml IVPUSH ASDIRECTED PRN PRN Reason: Hypoglycemia Diphenhydramine HCl (Benadryl) 50 mg IVPUSH ONETIME ONE Stop: 06/01/20 18:35 Last Admin: 06/01/20 19:14 Dose: 50 mg Documented by: Estradiol (Estradiol) 2 mg PO PCLUNCH [facility] Estradiol (Estradiol) 4 mg PO QAM [facility] Estradiol (Estradiol) 2 mg PO DAILY@1300 [facility] Last Admin: 06/03/20 13:17 Dose: 2 mg Documented by: Glucagon (Glucagen) 1 mg IM ASDIRECTED PRN PRN Reason: Hypoglycemia Glucagon (Glucagen) 1 mg IM ASDIRECTED PRN PRN Reason: Hypoglycemia Glucagon (Glucagen) 1 mg IM ASDIRECTED PRN PRN Reason: Hypoglycemia Glucagon (Glucagen) 1 mg IM ASDIRECTED PRN PRN Reason: Hypoglycemia Hydroxyzine HCl (Vistaril) 75 mg IM Q4H PRN PRN Reason: Nausea Last Admin: 06/03/20 05:22 Dose: 75 mg Documented by: Sodium Chloride (Normal Saline) 1,000 mls @ 999 mls/hr IV .BOLUS ONE Stop: 06/01/20 19:33 Last Admin: 06/01/20 19:17 Dose: 999 mls/hr Documented by: Sodium Chloride (Normal Saline) 1,000 mls @ 125 mls/hr IV ASDIRECTED [facility] Last Admin: 06/03/20 23:05 Dose: 125 mls/hr Documented by: Prochlorperazine Edisylate 10 (mg/ Sodium Chloride) 52 mls @ 150 mls/hr IV ONETIME ONE Stop: 06/01/20 18:54 Last Admin: 06/01/20 19:15 Dose: 150 mls/hr Documented by: Sodium Chloride (Normal Saline) 1,000 mls @ 999 mls/hr IV .BOLUS ONE Stop: 06/02/20 01:18 Last Admin: 06/02/20 00:37 Dose: 999 mls/hr Documented by: Promethazine HCl 25 mg/ Sodium (Chloride) 51 mls @ 200 mls/hr IV ONETIME ONE Stop: 06/02/20 00:34 Last Admin: 06/02/20 00:40 Dose: 200 mls/hr Documented by: Promethazine HCl 12.5 mg/ (Sodium Chloride) 50.5 mls @ 200 mls/hr IV Q6H PRN PRN Reason: Nausea/Vomiting Last Admin: 06/03/20 07:44 Dose: 200 mls/hr Documented by: Insulin Degludec (Tresiba Flextouch U-200) 20 unit SQ DAILY [facility] Last Admin: 06/02/20 09:41 Dose: Not Given Documented by: Insulin Glargine (Lantus Solostar) 20 units SUBCUT DAILY [facility] Last Admin: 06/02/20 10:15 Dose: Not Given Documented by: Insulin Glargine (Lantus Solostar) 20 units SUBCUT DAILY [facility] Last Admin: 06/02/20 10:25 Dose: 20 units Documented by: Insulin Human Lispro (Humalog) 0 unit SUBCUT Q6H [facility]; Protocol Insulin Human Lispro (Humalog) 0 unit SUBCUT Q6H [facility]; Protocol Last Admin: 06/02/20 08:29 Dose: 6 units Documented by: Iopamidol (Isovue-370 (76%)) 100 ml IV . DIRECTED ONE Stop: 06/01/20 22:11 Last Admin: 06/01/20 22:18 Dose: 100 ml Documented by: Medroxyprogesterone Acetate (Provera) 5 mg PO BEDTIME [facility] Medroxyprogesterone Acetate (Provera) 5 mg PO BEDTIME [facility] Last Admin: 06/02/20 20:57 Dose: 5 mg Documented by: Metoclopramide HCl (Reglan) 10 mg IM ONETIME ONE Stop: 06/01/20 23:56 Last Admin: 06/01/20 23:59 Dose: 10 mg Documented by: Ondansetron HCl (Zofran) 4 mg IVPUSH ONETIME ONE Stop: 06/01/20 21:54 Last Admin: 06/01/20 22:00 Dose: 4 mg Documented by: Ondansetron HCl (Zofran) 4 mg IV Q6H PRN PRN Reason: Nausea/Vomiting Last Admin: 06/04/20 07:44 Dose: 4 mg Documented by: Pantoprazole Sodium (Protonix Iv) 40 mg IVPUSH Q12H [facility] Last Admin: 06/04/20 00:59 Dose: 40 mg Documented by: Propofol (Diprivan 20 Ml) 300 mg IV .STK-MED ONE Stop: 06/02/20 00:37 Sodium Chloride (Saline Flush) 10 ml FLUSH ASDIRECTED PRN PRN Reason: Keep Vein Open Last Admin: 06/03/20 01:25 Dose: 10 ml Documented by: Sodium Chloride (Saline Flush) 10 ml FLUSH ASDIRECTED PRN PRN Reason: Keep Vein Open Spironolactone (Aldactone) 100 mg PO BID [facility] Last Admin: 06/02/20 10:15 Dose: Not Given Documented by: Sucralfate (Carafate) 1 gm PO QIDACANDBED [facility] Sucralfate (Carafate) 1 gm PO QIDACANDBED [facility] Last Admin: 06/03/20 20:19 Dose: 1 gm Documented by: - Exam General: Alert, Oriented, Cooperative, No Acute Distress Lungs: Clear to Auscultation, Normal Respiratory Effort Cardiovascular: Regular Rate, Regular Rhythm GI/Abdominal Exam: Normal Bowel Sounds, Soft, Non-Tender Sepsis Event Note - Evaluation Sepsis Screening Result: No Definite Risk - Focused Exam Vital Signs: Vital Signs Temp Pulse Resp BP Pulse Ox 06/04/20 01:00 98 F 87 18 152/82 H 99 - Problem List & Annotations (1) Abdominal pain SNOMED Code(s): 39201583 Code(s): R10.9 - UNSPECIFIED ABDOMINAL PAIN Status: Acute Current Visit: Yes Qualifiers: Abdominal location: epigastric Qualified Code(s): R10.13 - Epigastric pain - Problem List Review Problem List Initiated/Reviewed/Updated: Yes - My Orders Last 24 Hours: Active Orders 24 hr Category Date Time Status Regular Diet [DIET] Diet 06/04/20 Lunch Active Escitalopram [Lexapro] Med 06/04/20 09:00 Active 20 mg PO DAILY Metoclopramide [Reglan] Med 06/03/20 17:30 Active 5 mg PO QIDACANDBED Pantoprazole [ProTONIX] Med 06/05/20 09:00 Active 40 mg PO 0600 amLODIPine [Norvasc] Med 06/04/20 09:00 Active 2.5 mg PO DAILY estradioL Med 06/04/20 13:00 Active 4 mg PO DAILY@1300 medroxyPROGESTERone [Provera] Med 06/03/20 21:00 Active 10 mg PO BEDTIME Convert IV to Saline Lock [OM.PC] Routine Oth 06/04/20 08:56 Ordered Medication Orders Amlodipine Besylate (Norvasc) 2.5 mg PO DAILY [facility] Dextrose/Water (Dextrose 50% In Water) 50 ml IVPUSH ASDIRECTED PRN PRN Reason: Hypoglycemia Escitalopram Oxalate (Lexapro) 20 mg PO DAILY [facility] Estradiol (Estradiol) 4 mg PO DAILY [facility] Last Admin: 06/03/20 09:00 Dose: Not Given Documented by: Admin: 06/03/20 06:41 Dose: Not Given Documented by: MARGE Estradiol (Estradiol) 4 mg PO DAILY@1300 [facility] Glucagon (Glucagen) 1 mg IM ASDIRECTED PRN PRN Reason: Hypoglycemia Insulin Glargine (Lantus Solostar) 30 units SUBCUT DAILY [facility] Last Admin: 06/04/20 09:31 Dose: 30 units Documented by: LILLIANA Cosigned by: HARDEEP Admin: 06/03/20 13:19 Dose: 30 units Documented by: VINICIO Cosigned by: RHODA Insulin Human Lispro (Humalog) 0 unit SUBCUT QIDACANDBED [facility]; Protocol Last Admin: 06/04/20 08:21 Dose: 6 units Documented by: LILLIANA Cosigned by: HARDEEP Admin: 06/03/20 20:23 Dose: 2 units Documented by: ROBSON Cosigned by: RITU Admin: 06/03/20 18:07 Dose: 4 units Documented by: VINICIO Cosigned by: RHODA Admin: 06/03/20 13:21 Dose: 6 units Documented by: VINICIO Cosigned by: RHODA Admin: 06/03/20 08:03 Dose: 10 units Documented by: VINICIO Cosigned by: MARGE Admin: 06/02/20 20:59 Dose: 6 units Documented by: MARGE Cosigned by: ASIA Admin: 06/02/20 17:01 Dose: 4 units Documented by: RITU Cosigned by: MARGARET Admin: 06/02/20 12:05 Dose: 8 units Documented by: MARIA ELENA Cosigned by: MARGARET Medroxyprogesterone Acetate (Provera) 10 mg PO BEDTIME [facility] Last Admin: 06/03/20 20:21 Dose: 10 mg Documented by: ROBSON Metoclopramide HCl (Reglan) 5 mg PO QIDACANDBED [facility] Last Admin: 06/04/20 08:18 Dose: 5 mg Documented by: Admin: 06/03/20 20:18 Dose: 5 mg Documented by: Admin: 06/03/20 18:06 Dose: 5 mg Documented by: VINICIO Pantoprazole Sodium (Protonix) 40 mg PO 0600 [facility] Spironolactone (Aldactone) 100 mg PO BID [facility] Last Admin: 06/03/20 20:20 Dose: 100 mg Documented by: Admin: 06/03/20 13:17 Dose: 100 mg Documented by: Admin: 06/02/20 20:56 Dose: 100 mg Documented by: Admin: 06/02/20 10:28 Dose: 100 mg Documented by: MARIA ELENA - Assessment Assessment (Free Text/Narrative):: clinically demonstrates no sig issues. - Plan Plan (Free Text/Narrative):: would increase Reglan. slowly advance diet.
[2020-06-04] MEDS: Estradiol 1 MG Tab PO SCH (10:38)
[2020-06-04] MEDS: Spironolactone 50 MG Tab PO SCH (10:38)
[2020-06-04] MEDS: Sucralfate 1 GM Tab PO SCH (11:19)
[2020-06-04] MEDS: Metoclopramide 10 MG Tab PO SCH ×2 (11:36→19:46)
--- NOTE | 2020-06-04 12:48 | PN ---
DATE SEEN: 06/04/2020 HISTORY: Batool is a 29-year-old male to female transgender woman who came in with severe abdominal pain, nausea, and vomiting. She underwent gastroscopy by Dr. Owens yesterday and was found to have patchy gastritis as well as intragastric bile reflux. She was started on metoclopramide, Protonix, and Carafate. She has felt slightly better overnight. She has taken clear liquids this morning with some improvement in symptoms. PHYSICAL EXAMINATION: GENERAL: She is awake and alert. VITAL SIGNS: Blood pressure 152/82, temp 98, pulse 87, respirations 18. LUNGS: Clear. HEART: Regular. ABDOMEN: Has normal bowel sounds. Soft. She has minimal tenderness in the epigastric area. EXTREMITIES: Show 1+ edema at the right ankle, trace at the left. ASSESSMENT: Gastritis with nausea and vomiting, improving. PLAN: We will advance her diet. Discontinue IV fluid. Convert her Protonix to oral and continue her metoclopramide. If improved sufficiently, we will plan for discharge within 24 hours. /[id number] JESUS/MARC
[2020-06-04] MEDS ORDERED: Estradiol 1 MG Tab PO SCH (13:00)
--- NOTE | 2020-06-05 02:24 | DISCH ---
DISCHARGE DATE: 06/04/2020 PRIMARY FINAL DIAGNOSES: 1. Acute gastritis with nausea, vomiting, abdominal pain. 2. Type 1 diabetes, poorly controlled. 3. Depression. 4. 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 OPERATION: Upper GI endoscopy by Dr. Owens on 06/03/2020. COMPLICATIONS: None. SUMMARY: Kee is a 29-year-old transgender male to female woman who was admitted because of severe abdominal pains, nausea, and vomiting. She was placed n.p.o., started on IV rehydration, and started on IV Protonix, oral Carafate, and her diabetes was treated with insulin. She continued to have vomiting and lack of good oral intake. So, on 06/03, she underwent upper GI endoscopy by Dr. Owens that showed patchy gastritis and bile in the stomach consistent with biliary reflux. Reglan was added and she slowly was able to tolerate more foods. By 06/04, she was anxious for discharge and feeling better. MEDICATIONS ON DISCHARGE: 1. Amlodipine 2.5 mg daily for significant repetitive elevated blood pressure at 190 to 200 systolic. 2. Lexapro 20 mg daily. 3. Medroxyprogesterone acetate 10 mg at bedtime. 4. Novolin R 1 to 3 units t.i.d. p.r.n. at meals. 5. Tresiba 25 units daily. 6. Estradiol 4 mg b.i.d. 7. Tylenol p.r.n. 8. Aldactone 100 mg b.i.d. 9. Protonix 40 mg daily x1 month. 10.Reglan 5 mg t.i.d. She is to have followup with Shayy Montiel, her provider, in 2 weeks to recheck blood pressure, abdomen, and diabetes control. She is to call should there be questions or problems prior to that time. /[phone] [id number] JESUS/MARC
[2020-06-05] MEDS ORDERED: Pantoprazole 40 MG Tab.CR PO SCH (09:00)
== END 2020-06-04 19:00 | disposition home or self-care (01) ==
LOC: FB.ED 18:08 → FB.MS 06-02 00:35
PROVIDERS: ADMIT Emergency Medicine; ATTEND Family Medicine
DX: K29.70 Gastritis, unspecified, without bleeding (principal); E10.65 Type 1 diabetes mellitus with hyperglycemia; F32.9 Major depressive disorder, single episode, unspecified; E10.621 Type 1 diabetes mellitus with foot ulcer; E10.42 Type 1 diabetes mellitus with diabetic polyneuropathy; Z01.812 Encounter for preprocedural laboratory examination; Z20.828 Contact with and (suspected) exposure to other viral communicable diseases; E10.319 Type 1 diabetes mellitus with unspecified diabetic retinopathy without macular edema; L97.519 Non-pressure chronic ulcer of other part of right foot with unspecified severity; F41.1 Generalized anxiety disorder; I10 Essential (primary) hypertension; Z79.899 Other long term (current) drug therapy
CPT/HCPCS: 00731; 36415; 43239; 74177; 80048; 80053; 80305; 81001; 82565; 82607; 82728; 82962; 83540; 83550; 83690; 83735; 85025; 85045; 87635; 93005; 96365; 96367; 96372; 96375; 96376; 99285; A9270; C9113; G0378; J0780; J1200; J1815; J2405; J2550; J2704; J2765; J3410; J7030; Q9967; 88305; 88342; U0002

== ENCOUNTER 2021-01-08 02:18 | Emergency (ER) | payer BC, OTHER ==
[2021-01-08] MEDS ORDERED: Ondansetron 4 MG Tab.DIS PO ONE (03:05)
[2021-01-08] MEDS ORDERED: Losartan 50 MG Tab PO ONE (04:04)
[2021-01-08 04:44] LABS: ACETAMINOPHEN < 2 ug/mL (<2)
[2021-01-08] MEDS ORDERED: amLODIPine 10 MG Tab PO ONE (06:26)
[2021-01-08] MEDS ORDERED: hydrOXYzine HCl 50 MG/ML SDV IM ONE (06:26)
[2021-01-08] MEDS ORDERED: Insulin Lispro 100 Unit/ML 3 ML KwikPen SUBCUT ONE ×4 (07:42→13:10)
[2021-01-08] MEDS ORDERED: Glucagon,Human Recombinant 1 MG Vial IM PRN ×2 (07:42→11:32)
[2021-01-08] MEDS ORDERED: hydrALAZINE 20 MG/ML SDV IM ONE (07:42)
[2021-01-08] MEDS ORDERED: 50% Dextrose in Water 50 ML Syringe IVPUSH PRN ×2 (07:42→11:32)
[2021-01-08] MEDS ORDERED: Labetalol 20 MG/4 ML Syringe IVPUSH ONE (09:47)
[2021-01-08] MEDS ORDERED: Sodium Chloride 0.9% 10 ML Syringe FLUSH PRN (09:47)
[2021-01-08] MEDS ORDERED: Sodium Chloride 0.9% 1,000 ML IV SCH (10:00)
[2021-01-08] MEDS ORDERED: Ondansetron 4 MG/2 ML SDV IVPUSH ONE (10:32)
--- NOTE | 2021-01-08 12:19 | EDM.PDOCBH ---
ED HPI GENERAL MEDICAL PROBLEM - General Chief Complaint: Behavioral/Psych Stated Complaint: Suicidal ideation Time Seen by Provider: 01/08/21 02:30 Source of Information: Reports: Patient History Limitations: Reports: No Limitations - History of Present Illness INITIAL COMMENTS - FREE TEXT/NARRATIVE: Patient presented to the ED because of suicidal ideation. It started 2 weeks ago and everything is just going downhill. He said his anxiety and depression is getting worse because of different stressors in his life which he didn't want to elaborate. With regards to a plan, he said he will inject himself with a lot of insulin. He has a history of attempted suicide through drug overdose 3-4 months ago. He also complains of cough and cold, nausea and vomiting for 2 days. He d enies having any fever,chills, diarrhea. L flank Pain Score (Numeric/FACES): 1 - Related Data Allergies Allergy/AdvReac Type Severity Reaction Status Date / Time No Known Allergies Allergy Verified 01/08/21 02:32 Home Meds: Home Meds estradioL [Estradiol] 4 mg PO DAILY 02/04/19 [History] Insulin Regular, Human [NovoLIN R] 7 - 10 units SQ TID 11/12/19 [History] estradioL [Estradiol] 4 mg PO PCLUNCH 06/02/20 [History] Acetaminophen [Tylenol Extra Strength] 500 - 1,000 mg PO DAILY PRN 06/03/20 [History] Prazosin HCl [Prazosin] 1 mg PO BEDTIME 06/03/20 [History] medroxyPROGESTERone [Provera] 10 mg PO BEDTIME 06/03/20 [History] Pantoprazole [ProTONIX] 40 mg PO 0600 #30 tab.cr 06/04/20 [Rx] Ferrous Sulfate [Iron] 325 mg PO DAILY 01/08/21 [History] Insulin Degludec [Tresiba Flextouch U-100] 21 units SQ DAILY 01/08/21 [History] Losartan [Cozaar] 25 mg PO DAILY 01/08/21 [History] Past Medical History HEENT History: Reports: None Cardiovascular History: Reports: Hypertension Respiratory History: Reports: None Gastrointestinal History: Reports: GERD, PUD Genitourinary History: Reports: Renal Calculus Musculoskeletal History: Reports: Amputation Other Musculoskeletal History: R gt toe amputated due to ulcer Neurological History: Reports: None Psychiatric History: Reports: Anxiety, Depression, Psych Hospitalization(s), Suicide Attempt, Suicidal Ideation Other Psychiatric History: HRT Endocrine/Metabolic History: Reports: Diabetes, Type I Hematologic History: Reports: Anemia, Iron Deficiency Dermatologic History: Reports: Other (See Below) Other Dermatologic History: foot ulcer on left 1 year, right 1 month - Infectious Disease History Infectious Disease History: Reports: Chicken Pox - Past Surgical History HEENT Surgical History: Reports: None Cardiovascular Surgical History: Reports: None Respiratory Surgical History: Reports: None GI Surgical History: Reports: None, EGD Male Surgical History: Reports: Circumcision Endocrine Surgical History: Reports: None Neurological Surgical History: Reports: None Musculoskeletal Surgical History: Reports: Amputation Other Musculoskeletal Surgeries/Procedures:: R gt toe Social & Family History - Family History Family Medical History: No Pertinent Family History - Tobacco Use Tobacco Use Status *Q: Former Tobacco User Used Tobacco, but Quit: Yes Month/Year Tobacco Last Used: 2018 - Caffeine Use Caffeine Use: Reports: Coffee, Energy Drinks, Soda, Tea - Recreational Drug Use Recreational Drug Use: Yes Recreational Drug Type: Reports: Marijuana/Hashish Recreational Drug Use Frequency: Monthly - Sexual History Sexual History: Reports: Same Sex Partner Other Sexual History Comment: Patient is transgender and identifies as a she. - Living Situation & Occupation Living situation: Reports: Single Occupation: Employed (Works at [employer]) ED ROS GENERAL - Review of Systems Review Of Systems: See Below Constitutional: Reports: No Symptoms HEENT: Reports: No Symptoms Respiratory: Reports: Cough Cardiovascular: Reports: No Symptoms Endocrine: Reports: No Symptoms GI/Abdominal: Reports: Nausea : Reports: No Symptoms Musculoskeletal: Reports: No Symptoms Skin: Reports: No Symptoms Neurological: Reports: No Symptoms Psychiatric: Reports: No Symptoms Hematologic/Lymphatic: Reports: No Symptoms Immunologic: Reports: No Symptoms ED EXAM, BEHAVIORAL HEALTH - Physical Exam Exam: See Below Exam Limited By: No Limitations General Appearance: Alert, No Apparent Distress Eye Exam: Bilateral Eye: PERRL Ears: Normal External Exam, Normal Canal Nose: Normal Inspection, Normal Mucosa Throat/Mouth: Normal Inspection Head: Atraumatic, Normocephalic Neck: Normal Inspection, Supple, Non-Tender, Full Range of Motion Respiratory/Chest: No Respiratory Distress, Lungs Clear, Normal Breath Sounds, No Accessory Muscle Use, Chest Non-Tender Cardiovascular: Normal Peripheral Pulses, Regular Rate, Rhythm, No Edema, No Gallop, No JVD, No Murmur, No Rub GI/Abdominal: Normal Bowel Sounds, Soft, Non-Tender, No Organomegaly, No Distention, No Abnormal Bruit Back Exam: Normal Inspection, Full Range of Motion Extremities: Normal Inspection, Normal Range of Motion, Non-Tender Psychiatric: Alert, Normal Affect, Normal Cognition, Normal Mood Skin Exam: Warm, Dry, Intact, Normal color COURSE, BEHAVIORAL HEALTH COMP - Course Vital Signs: Last Vital Signs Temp 36.9 C 01/08/21 06:12 Pulse 90 01/08/21 11:44 Resp 18 01/08/21 11:44 BP 152/74 H 01/08/21 11:44 Pulse Ox 100 01/08/21 09:40 Lab result was reviewed and discussed with patient NS 1 L bolus Losartan 50 mg PO x1 Amlodipine 10 mg po x1 Hydralazine 20 mg IM x1 Novolog 15 U SC x1 Novolog 10 U SC x1 Zofran ODT 4 mg PO x1 Zofran 4 mg II x1 Orders, Labs, Meds: Active Orders 24 hr Category Date Time Status Blood Glucose Check, Bedside [RC] ONETIME Care 01/08/21 07:42 Active Dextrose 50% in Water Med 01/08/21 07:42 Active 50 ml IVPUSH ASDIRECTED PRN Dextrose 50% in Water Med 01/08/21 11:32 Active 50 ml IVPUSH ASDIRECTED PRN Glucagon,Human Recombinant [GlucaGen] Med 01/08/21 07:42 Active 1 mg IM ASDIRECTED PRN Glucagon,Human Recombinant [GlucaGen] Med 01/08/21 11:32 Active 1 mg IM ASDIRECTED PRN Sodium Chloride 0.9% [Normal Saline] 1,000 ml Med 01/08/21 10:00 Active IV ASDIRECTED Sodium Chloride 0.9% [Saline Flush] Med 01/08/21 09:47 Active 10 ml FLUSH ASDIRECTED PRN Saline Lock Insert [OM.PC] Routine Oth 01/08/21 09:47 Ordered Medication Orders Dextrose/Water (50% Dextrose In Water 50 Ml Syringe) 50 ml IVPUSH ASDIRECTED PRN PRN Reason: Hypoglycemia Dextrose/Water (50% Dextrose In Water 50 Ml Syringe) 50 ml IVPUSH ASDIRECTED PRN PRN Reason: Hypoglycemia Glucagon (Glucagon,Human Recombinant 1 Mg Vial) 1 mg IM ASDIRECTED PRN PRN Reason: Hypoglycemia Glucagon (Glucagon,Human Recombinant 1 Mg Vial) 1 mg IM ASDIRECTED PRN PRN Reason: Hypoglycemia Sodium Chloride (Normal Saline) 1,000 mls @ 999 mls/hr IV ASDIRECTED RAKAN Last Admin: 01/08/21 10:09 Dose: 999 mls/hr Documented by: DIFFCAL Sodium Chloride (Sodium Chloride 0.9% 10 Ml Syringe) 10 ml FLUSH ASDIRECTED PRN PRN Reason: Keep Vein Open Laboratory Tests 01/08/21 01/08/21 01/08/21 Range/Units 02:30 02:30 02:30 WBC 7.1 (3.2-10.1) x10-3/uL RBC 2.66 L (3.90-5.90) x10(6)uL Hgb 8.7 L (12.9-17.7) g/dL Hct 25.2 L (38.3-50.1) % MCV 94.7 (80.8-98.7) fL MCH 32.6 (27.0-33.3) pg MCHC 34.5 (28.7-35.3) g/dL RDW 13.8 (12.4-15.0) % Plt Count 271 (117-477) x10(3)uL MPV 7.7 (6.7-11.0) fL Neut % (Auto) 62.2 (40.3-71.8) % Lymph % (Auto) 29.1 (15.8-45.3) % [place] % (Auto) 6.3 (5.5-15.2) % Eos % (Auto) 1.8 (0.1-6.8) % Baso % (Auto) 0.6 (0.3-3.8) % Neut # (Auto) 4.4 (1.7-6.9) x10-3/uL Lymph # (Auto) 2.1 (0.5-4.5) x10-3/uL [place] # (Auto) 0.4 (0.0-1.2) x10-3/uL Eos # (Auto) 0.1 (0.0-0.6) x10-3/uL Baso # (Auto) 0.0 (0.0-0.3) x10-3/uL Sodium 134 L (135-145) mmol/L Potassium 4.1 (3.5-5.3) mmol/L Chloride 102 (100-110) mmol/L Carbon Dioxide 22 (21-32) mmol/L BUN 31 H D (7-18) mg/dL Creatinine 1.9 H (0.70-1.30) mg/dL Est Cr Clr Drug Dosing 61.83 mL/min Estimated GFR (MDRD) 42 L (>60) BUN/Creatinine Ratio 16.3 (9-20) Glucose 273 H (80-116) mg/dL POC Glucose (80-116) mg/dL Calcium 7.0 L (8.6-10.2) mg/dL Total Bilirubin 0.3 (0.1-1.3) mg/dL AST 22 D (5-25) IU/L ALT 28 D (12-36) U/L Alkaline Phosphatase 97 (56-112) IU/L Total Protein 6.0 (6.0-8.0) g/dL Albumin 2.1 L (3.5-5.2) g/dL Globulin 3.9 g/dL Albumin/Globulin Ratio 0.5 TSH, Ultra Sensitive 3.09 (0.36-3.74) IU/mL Salicylates < 2.8 L (<2.8) mg/dL Urine Opiates Screen (NEGATIVE) Ur Oxycodone Screen (NEGATIVE) Ur Propoxyphene Screen (NEGATIVE) Acetaminophen < 2 L (<2) ug/mL Ur Barbituates Screen (NEGATIVE) Ur Tricyclics Screen (NEGATIVE) Ur Phencyclidine Scrn (NEGATIVE) Ur Amphetamine Screen (NEGATIVE) Urine MDMA Screen (NEGATIVE) U Benzodiazepines Scrn (NEGATIVE) U Cocaine Metab Screen (NEGATIVE) U Marijuana (THC) Screen (NEGATIVE) Ethyl Alcohol < 0.03 (<0.03) % SARS-CoV-2 RNA (KEV) (NEGATIVE) 01/08/21 01/08/21 01/08/21 Range/Units 02:35 04:18 07:36 WBC (3.2-10.1) x10-3/uL RBC (3.90-5.90) x10(6)uL Hgb (12.9-17.7) g/dL Hct (38.3-50.1) % MCV (80.8-98.7) fL MCH (27.0-33.3) pg MCHC (28.7-35.3) g/dL RDW (12.4-15.0) % Plt Count (117-477) x10(3)uL MPV (6.7-11.0) fL Neut % (Auto) (40.3-71.8) % Lymph % (Auto) (15.8-45.3) % [place] % (Auto) (5.5-15.2) % Eos % (Auto) (0.1-6.8) % Baso % (Auto) (0.3-3.8) % Neut # (Auto) (1.7-6.9) x10-3/uL Lymph # (Auto) (0.5-4.5) x10-3/uL [place] # (Auto) (0.0-1.2) x10-3/uL Eos # (Auto) (0.0-0.6) x10-3/uL Baso # (Auto) (0.0-0.3) x10-3/uL Sodium (135-145) mmol/L Potassium (3.5-5.3) mmol/L Chloride (100-110) mmol/L Carbon Dioxide (21-32) mmol/L BUN (7-18) mg/dL Creatinine (0.70-1.30) mg/dL Est Cr Clr Drug Dosing mL/min Estimated GFR (MDRD) (>60) BUN/Creatinine Ratio (9-20) Glucose (80-116) mg/dL POC Glucose 372 H (80-116) mg/dL Calcium (8.6-10.2) mg/dL Total Bilirubin (0.1-1.3) mg/dL AST (5-25) IU/L ALT (12-36) U/L Alkaline Phosphatase (56-112) IU/L Total Protein (6.0-8.0) g/dL Albumin (3.5-5.2) g/dL Globulin g/dL Albumin/Globulin Ratio TSH, Ultra Sensitive (0.36-3.74) IU/mL Salicylates (<2.8) mg/dL Urine Opiates Screen Negative (NEGATIVE) Ur Oxycodone Screen Negative (NEGATIVE) Ur Propoxyphene Screen Negative (NEGATIVE) Acetaminophen (<2) ug/mL Ur Barbituates Screen Negative (NEGATIVE) Ur Tricyclics Screen Negative (NEGATIVE) Ur Phencyclidine Scrn Negative (NEGATIVE) Ur Amphetamine Screen Negative (NEGATIVE) Urine MDMA Screen Negative (NEGATIVE) U Benzodiazepines Scrn Negative (NEGATIVE) U Cocaine Metab Screen Negative (NEGATIVE) U Marijuana (THC) Screen Positive H (NEGATIVE) Ethyl Alcohol (<0.03) % SARS-CoV-2 RNA (KEV) Negative (NEGATIVE) 01/08/21 01/08/21 Range/Units 09:42 11:28 WBC (3.2-10.1) x10-3/uL RBC (3.90-5.90) x10(6)uL Hgb (12.9-17.7) g/dL Hct (38.3-50.1) % MCV (80.8-98.7) fL MCH (27.0-33.3) pg MCHC (28.7-35.3) g/dL RDW (12.4-15.0) % Plt Count (117-477) x10(3)uL MPV (6.7-11.0) fL Neut % (Auto) (40.3-71.8) % Lymph % (Auto) (15.8-45.3) % [place] % (Auto) (5.5-15.2) % Eos % (Auto) (0.1-6.8) % Baso % (Auto) (0.3-3.8) % Neut # (Auto) (1.7-6.9) x10-3/uL Lymph # (Auto) (0.5-4.5) x10-3/uL [place] # (Auto) (0.0-1.2) x10-3/uL Eos # (Auto) (0.0-0.6) x10-3/uL Baso # (Auto) (0.0-0.3) x10-3/uL Sodium (135-145) mmol/L Potassium (3.5-5.3) mmol/L Chloride (100-110) mmol/L Carbon Dioxide (21-32) mmol/L BUN (7-18) mg/dL Creatinine (0.70-1.30) mg/dL Est Cr Clr Drug Dosing mL/min Estimated GFR (MDRD) (>60) BUN/Creatinine Ratio (9-20) Glucose (80-116) mg/dL POC Glucose 317 H 259 H (80-116) mg/dL Calcium (8.6-10.2) mg/dL Total Bilirubin (0.1-1.3) mg/dL AST (5-25) IU/L ALT (12-36) U/L Alkaline Phosphatase (56-112) IU/L Total Protein (6.0-8.0) g/dL Albumin (3.5-5.2) g/dL Globulin g/dL Albumin/Globulin Ratio TSH, Ultra Sensitive (0.36-3.74) IU/mL Salicylates (<2.8) mg/dL Urine Opiates Screen (NEGATIVE) Ur Oxycodone Screen (NEGATIVE) Ur Propoxyphene Screen (NEGATIVE) Acetaminophen (<2) ug/mL Ur Barbituates Screen (NEGATIVE) Ur Tricyclics Screen (NEGATIVE) Ur Phencyclidine Scrn (NEGATIVE) Ur Amphetamine Screen (NEGATIVE) Urine MDMA Screen (NEGATIVE) U Benzodiazepines Scrn (NEGATIVE) U Cocaine Metab Screen (NEGATIVE) U Marijuana (THC) Screen (NEGATIVE) Ethyl Alcohol (<0.03) % SARS-CoV-2 RNA (KEV) (NEGATIVE) Medications Generic Name Dose Route Start Last Admin Trade Name Freq PRN Reason Stop Dose Admin Dextrose/Water 50 ml 01/08/21 07:42 50% Dextrose In Water 50 Ml Syringe IVPUSH ASDIRECTED PRN Hypoglycemia Dextrose/Water 50 ml 01/08/21 11:32 50% Dextrose In Water 50 Ml Syringe IVPUSH ASDIRECTED PRN Hypoglycemia Glucagon 1 mg 01/08/21 07:42 Glucagon,Human Recombinant 1 Mg Vial IM ASDIRECTED PRN Hypoglycemia Glucagon 1 mg 01/08/21 11:32 Glucagon,Human Recombinant 1 Mg Vial IM ASDIRECTED PRN Hypoglycemia Sodium Chloride 1,000 mls @ 999 mls/hr 01/08/21 10:00 01/08/21 10:09 Normal Saline IV 999 mls/hr ASDIRECTED RAKAN Administration Sodium Chloride 10 ml 01/08/21 09:47 Sodium Chloride 0.9% 10 Ml Syringe FLUSH ASDIRECTED PRN Keep Vein Open Discontinued Medications Generic Name Dose Route Start Last Admin Trade Name Freq PRN Reason Stop Dose Admin Amlodipine Besylate 10 mg 01/08/21 06:26 01/08/21 06:35 Amlodipine 10 Mg Tab PO 01/08/21 06:27 10 mg ONETIME ONE Administration Hydralazine HCl 20 mg 01/08/21 07:42 01/08/21 07:46 Hydralazine 20 Mg/Ml Sdv IM 01/08/21 07:43 20 mg Q4H ONE Administration Hydroxyzine HCl 50 mg 01/08/21 06:26 01/08/21 06:35 Hydroxyzine Hcl 50 Mg/Ml Sdv IM 01/08/21 06:27 50 mg ONETIME ONE Administration Insulin Human Lispro 15 unit 01/08/21 07:42 01/08/21 07:49 Insulin Lispro 100 Unit/Ml 3 Ml Kwikpen SUBCUT 01/08/21 07:43 15 units ONETIME ONE Administration Insulin Human Lispro 10 unit 01/08/21 11:32 01/08/21 11:33 Insulin Lispro 100 Unit/Ml 3 Ml Kwikpen SUBCUT 01/08/21 11:33 10 units ONETIME ONE Administration Labetalol HCl 20 mg 01/08/21 09:47 01/08/21 10:09 Labetalol 20 Mg/4 Ml Syringe IVPUSH 01/08/21 09:48 20 mg ONETIME ONE Administration Protocol Losartan Potassium 50 mg 01/08/21 04:04 01/08/21 04:11 Losartan 50 Mg Tab PO 01/08/21 04:05 50 mg ONETIME ONE Administration Ondansetron HCl 4 mg 01/08/21 03:05 01/08/21 03:10 Ondansetron 4 Mg Tab.Dis PO 01/08/21 03:06 4 mg ONETIME ONE Administration Ondansetron HCl 4 mg 01/08/21 10:32 01/08/21 10:36 Ondansetron 4 Mg/2 Ml Sdv IVPUSH 01/08/21 10:33 4 mg ONETIME ONE Administration Departure - Departure Time of Disposition: 13:00 Disposition: DC/Tfer to Psych Hosp/Unit 65 Condition: Good Clinical Impression: Anxiety, Depression, Diabetes mellitus, Hyperglycemia due to type 1 diabetes mellitus, Hypertension associated with chronic kidney disease due to type 1 diabetes mellitus - Discharge Information Referrals: Shayy Montiel NP [Primary Care Provider] - Forms: ED Department Discharge Sepsis Event Note (ED) - Evaluation Sepsis Screening Result: No Definite Risk - Focused Exam Vital Signs: Vital Signs Temp Pulse Resp BP BP Pulse Ox 01/08/21 11:44 90 18 152/74 H 01/08/21 10:20 93 18 136/66 01/08/21 09:40 98 18 174/71 H 100 01/08/21 07:44 94 16 184/82 H 100 01/08/21 06:35 188/84 H 01/08/21 06:12 36.9 C 88 18 188/84 H 100 01/08/21 04:11 196/96 H 01/08/21 03:54 89 18 196/96 H 100 01/08/21 02:18 36.8 C 90 18 177/90 H 100 - My Orders Last 24 Hours: My Active Orders 01/08/21 07:42 Blood Glucose Check, Bedside [RC] ONETIME Dextrose 50% in Water 50 ml IVPUSH ASDIRECTED PRN Glucagon,Human Recombinant [GlucaGen] 1 mg IM ASDIRECTED PRN 01/08/21 09:47 Sodium Chloride 0.9% [Saline Flush] 10 ml FLUSH ASDIRECTED PRN Saline Lock Insert [OM.PC] Routine 01/08/21 10:00 Sodium Chloride 0.9% [Normal Saline] 1,000 ml IV ASDIRECTED 01/08/21 11:32 Dextrose 50% in Water 50 ml IVPUSH ASDIRECTED PRN Glucagon,Human Recombinant [GlucaGen] 1 mg IM ASDIRECTED PRN - Assessment/Plan Last 24 Hours: My Active Orders 01/08/21 07:42 Blood Glucose Check, Bedside [RC] ONETIME Dextrose 50% in Water 50 ml IVPUSH ASDIRECTED PRN Glucagon,Human Recombinant [GlucaGen] 1 mg IM ASDIRECTED PRN 01/08/21 09:47 Sodium Chloride 0.9% [Saline Flush] 10 ml FLUSH ASDIRECTED PRN Saline Lock Insert [OM.PC] Routine 01/08/21 10:00 Sodium Chloride 0.9% [Normal Saline] 1,000 ml IV ASDIRECTED 01/08/21 11:32 Dextrose 50% in Water 50 ml IVPUSH ASDIRECTED PRN Glucagon,Human Recombinant [GlucaGen] 1 mg IM ASDIRECTED PRN
== END 2021-01-08 20:00 ==
LOC: FB.ED 02:18
DX: F41.8 Other specified anxiety disorders (principal); K21.9 Gastro-esophageal reflux disease without esophagitis; I12.9 Hypertensive chronic kidney disease with stage 1 through stage 4 chronic kidney disease, or unspecified chronic kidney disease; E10.65 Type 1 diabetes mellitus with hyperglycemia; E10.22 Type 1 diabetes mellitus with diabetic chronic kidney disease; N18.9 Chronic kidney disease, unspecified; Z87.891 Personal history of nicotine dependence; Z20.822 Contact with and (suspected) exposure to COVID-19; Z79.899 Other long term (current) drug therapy
CPT/HCPCS: 36415; 80053; 80143; 80179; 80305; 80307; 82947; 84443; 85025; 87635; 96372; 96374; 99285; A9270; J0360; J1815; J2405; J3410; J7030; J3490; U0002

== ENCOUNTER 2021-02-04 16:43 | Emergency (ER) | payer BC ==
[2021-02-04] MEDS ORDERED: Sodium Chloride 0.9% 1,000 ML IV ONE ×2 (17:01→17:50)
[2021-02-04] MEDS ORDERED: Sodium Chloride 0.9% 10 ML Syringe FLUSH PRN (17:01)
[2021-02-04] MEDS ORDERED: Metoclopramide 10 MG/2 ML SDV IVPUSH ONE (17:02)
[2021-02-04] MEDS ORDERED: Pantoprazole 40 MG Vial IVPUSH ONE (17:02)
[2021-02-04] MEDS ORDERED: Insulin Regular, Human 100 Units/ML 3 ML Vial IV ONE (17:02)
[2021-02-04] MEDS ORDERED: Insulin Regular, Human 100 Units/ML 3 ML Vial SUBCUT ONE (17:03)
[2021-02-04] MEDS ORDERED: hydrALAZINE 20 MG/ML SDV IVPUSH ONE (17:04)
[2021-02-04] MEDS ORDERED: HYDROmorphone 2 MG/ML SDV IVPUSH ONE (17:09)
--- NOTE | 2021-02-04 17:15 | EDM.PDOC ---
ED HPI GENERAL MEDICAL PROBLEM - General Chief Complaint: Abdominal Pain Stated Complaint: STOMACH PAIN, VOMITING Time Seen by Provider: 02/04/21 17:10 Source of Information: Reports: Patient History Limitations: Reports: No Limitations - History of Present Illness INITIAL COMMENTS - FREE TEXT/NARRATIVE: Patient is a transgender female with a history of gastritis, T1DM, CKD, HTN, Anemia, and THC abuse presents with periumbilical pain and vomiting since this morning. This is a recurrent issue. Denies prior h/o gastroparesis. EGD done May 2020 showed gastritis. Patient does not drink alcohol or smoke cigarettes, but does admit to daily cannabis use. Denies use of NSAIDS. No prior h/o abdominal surgeries. Patient did not take her oral medications today due to vomiting, but did give herself 15 units Reg Insulin at 1500 today. Onset: Today Location: Reports: Abdomen Severity: Moderate Middle Abdomen Pain Score (Numeric/FACES): 10 - Related Data Allergies Allergy/AdvReac Type Severity Reaction Status Date / Time No Known Allergies Allergy Verified 01/08/21 02:32 Home Meds: Home Meds estradioL [Estradiol] 4 mg PO DAILY 02/04/19 [History] Insulin Regular, Human [NovoLIN R] 7 - 10 units SQ TID 11/12/19 [History] estradioL [Estradiol] 4 mg PO PCLUNCH 06/02/20 [History] Acetaminophen [Tylenol Extra Strength] 500 - 1,000 mg PO DAILY PRN 06/03/20 [History] Prazosin HCl [Prazosin] 1 mg PO BEDTIME 06/03/20 [History] medroxyPROGESTERone [Provera] 10 mg PO BEDTIME 06/03/20 [History] Pantoprazole [ProTONIX] 40 mg PO 0600 #30 tab.cr 06/04/20 [Rx] Ferrous Sulfate [Iron] 325 mg PO DAILY 01/08/21 [History] Insulin Degludec [Tresiba Flextouch U-100] 21 units SQ DAILY 01/08/21 [History] Losartan [Cozaar] 25 mg PO DAILY 01/08/21 [History] Past Medical History HEENT History: Reports: None Cardiovascular History: Reports: Hypertension Respiratory History: Reports: None Gastrointestinal History: Reports: Gastritis, GERD, PUD Genitourinary History: Reports: Chronic Renal Insuffiency, Renal Calculus Musculoskeletal History: Reports: Amputation Other Musculoskeletal History: R gt toe amputated due to ulcer Neurological History: Reports: None Psychiatric History: Reports: Anxiety, Depression, Psych Hospitalization(s), Suicide Attempt, Suicidal Ideation Other Psychiatric History: HRT Endocrine/Metabolic History: Reports: Diabetes, Type I Hematologic History: Reports: Anemia, Iron Deficiency Dermatologic History: Reports: Other (See Below) Other Dermatologic History: foot ulcer on left 1 year, right 1 month - Infectious Disease History Infectious Disease History: Reports: Chicken Pox - Past Surgical History HEENT Surgical History: Reports: None Cardiovascular Surgical History: Reports: None Respiratory Surgical History: Reports: None GI Surgical History: Reports: None, EGD Male Surgical History: Reports: Circumcision Endocrine Surgical History: Reports: None Neurological Surgical History: Reports: None Musculoskeletal Surgical History: Reports: Amputation Other Musculoskeletal Surgeries/Procedures:: R gt toe Social & Family History - Family History Family Medical History: No Pertinent Family History - Tobacco Use Tobacco Use Within Last Twelve Months: No - Caffeine Use Caffeine Use: Reports: Coffee, Energy Drinks, Soda, Tea - Alcohol Use Alcohol Use History: No - Recreational Drug Use Recreational Drug Use: Yes Drug Use in Last 12 Months: Yes Recreational Drug Type: Reports: Marijuana/Hashish - Sexual History Sexual History: Reports: Same Sex Partner Other Sexual History Comment: Patient is transgender and identifies as a she. - Living Situation & Occupation Living situation: Reports: Single Occupation: Employed (Works at [employer]) ED ROS GENERAL - Review of Systems Review Of Systems: Comprehensive ROS is negative, except as noted in HPI. ED EXAM, GI/ABD - Physical Exam Exam: See Below Exam Limited By: No Limitations General Appearance: Alert, WD/WN, No Apparent Distress Ears: Normal External Exam Nose: Normal Inspection Throat/Mouth: Normal Voice, No Airway Compromise Head: Atraumatic, Normocephalic Neck: Full Range of Motion Respiratory/Chest: No Respiratory Distress, Lungs Clear, Normal Breath Sounds Cardiovascular: Regular Rate, Rhythm, Systolic Murmur GI/Abdominal Exam: Normal Bowel Sounds, Soft, No Distention, Tender (epigastric). No: Guarding Back Exam: Full Range of Motion Extremities: Normal Range of Motion Neurological: Alert, Oriented, Normal Cognition, Other (GCS=15) Psychiatric: Normal Affect, Normal Mood Skin Exam: Warm, Dry, Intact Course - Vital Signs Last Recorded V/S: Last Vital Signs Temp 36.1 C 02/04/21 18:03 Pulse 92 02/04/21 18:18 Resp 18 02/04/21 18:18 BP 168/94 H 02/04/21 18:18 Pulse Ox 100 02/04/21 18:18 - Orders/Labs/Meds Orders: Active Orders 24 hr Category Date Time Status Blood Glucose Check, Bedside [RC] Q1H Care 02/04/21 17:02 Active D5 1/2 NS w/ 20 mEq/L KCl 1,000 ml Med 02/04/21 20:00 Active IV ASDIRECTED Insulin Regular in 0.9 % NACL [Myxredlin in NS 100 UNIT Med 02/04/21 18:45 Active /100 ML] 100 ml IV TITRATE Sodium Chloride 0.9% [Saline Flush] Med 02/04/21 17:01 Active 10 ml FLUSH ASDIRECTED PRN Saline Lock Insert [OM.PC] Routine Oth 02/04/21 17:01 Ordered Medication Orders Insulin Regular in 0.9 % NACL (Myxredlin In Ns 100 Unit/100 Ml) 100 mls @ 7.711 mls/hr IV TITRATE RAKAN; Protocol Last Titration: 02/04/21 19:54 Dose: 0.03 units/kg/hr, 2.5 mls/hr Documented by: SYLVIE Cosigned by: MARQUITA Admin: 02/04/21 18:51 Dose: 0.05 units/kg/hr, 4 mls/hr Documented by: KEYON Cosigned by: PENNIE Potassium Chloride/Dextrose/Sod Cl (D5 1/2 Ns W/ 20 Meq/L Kcl) 1,000 mls @ 150 mls/hr IV ASDIRECTED RAKAN Last Admin: 02/04/21 19:56 Dose: 150 mls/hr Documented by: SYLVIE Sodium Chloride (Sodium Chloride 0.9% 10 Ml Syringe) 10 ml FLUSH ASDIRECTED PRN PRN Reason: Keep Vein Open Last Admin: 02/04/21 17:33 Dose: 10 ml Documented by: KEYON Labs: Laboratory Tests 02/04/21 02/04/21 02/04/21 Range/Units 16:54 17:15 17:15 WBC 8.5 (3.2-10.1) x10-3/uL RBC 3.24 L (3.90-5.90) x10(6)uL Hgb 10.5 L (12.9-17.7) g/dL Hct 30.8 L (38.3-50.1) % MCV 95.0 (80.8-98.7) fL MCH 32.5 (27.0-33.3) pg MCHC 34.2 (28.7-35.3) g/dL RDW 12.1 L (12.4-15.0) % Plt Count 312 (117-477) x10(3)uL MPV 7.5 (6.7-11.0) fL Neut % (Auto) 73.4 H (40.3-71.8) % Lymph % (Auto) 21.2 (15.8-45.3) % [place] % (Auto) 4.7 L (5.5-15.2) % Eos % (Auto) 0.3 (0.1-6.8) % Baso % (Auto) 0.4 (0.3-3.8) % Neut # (Auto) 6.3 (1.7-6.9) x10-3/uL Lymph # (Auto) 1.8 (0.5-4.5) x10-3/uL [place] # (Auto) 0.4 (0.0-1.2) x10-3/uL Eos # (Auto) 0.0 (0.0-0.6) x10-3/uL Baso # (Auto) 0.0 (0.0-0.3) x10-3/uL POC VBG pH (7.32-7.43) pH Units POC VBG pCO2 (41-51) mmHg POC VBG HCO3 (21-29) mmol/L VBG Base Excess (-2-3) mmol/L O2 Delivery Device Sodium 134 L (135-145) mmol/L Potassium 4.3 (3.5-5.3) mmol/L Chloride 97 L D (100-110) mmol/L Carbon Dioxide 20 L (21-32) mmol/L BUN 26 H (7-18) mg/dL Creatinine 2.4 H* (0.70-1.30) mg/dL Est Cr Clr Drug Dosing 44.60 mL/min Estimated GFR (MDRD) 32 L (>60) BUN/Creatinine Ratio 10.8 (9-20) Glucose 469 H* D (80-116) mg/dL POC Glucose 453 H* D (80-116) mg/dL Calcium 8.6 (8.6-10.2) mg/dL Total Bilirubin 0.6 (0.1-1.3) mg/dL AST 33 H D (5-25) IU/L ALT 34 D (12-36) U/L Alkaline Phosphatase 124 H (56-112) IU/L Total Protein 7.1 (6.0-8.0) g/dL Albumin 2.7 L (3.5-5.2) g/dL Globulin 4.4 g/dL Albumin/Globulin Ratio 0.6 Lipase (73-393) U/L Urine Color (YELLOW) Urine Appearance (CLEAR) Urine pH (5.0-6.5) Ur Specific [place] (1.010-1.025) Urine Protein (NEGATIVE) mg/dL Urine Glucose (UA) (NORMAL) mg/dL Urine Ketones (NEGATIVE) mg/dL Urine Occult Blood (NEGATIVE) Urine Nitrite (NEGATIVE) Urine Bilirubin (NEGATIVE) Urine Urobilinogen (NEGATIVE) mg/dL Ur Leukocyte Esterase (NEGATIVE) Urine RBC (0-5) Urine WBC (0-5) Ur Squamous Epith Cells (NS,R,O) Urine Bacteria (NS) Coarse Granular Casts (NS) 02/04/21 02/04/21 02/04/21 Range/Units 17:15 17:15 17:35 WBC (3.2-10.1) x10-3/uL RBC (3.90-5.90) x10(6)uL Hgb (12.9-17.7) g/dL Hct (38.3-50.1) % MCV (80.8-98.7) fL MCH (27.0-33.3) pg MCHC (28.7-35.3) g/dL RDW (12.4-15.0) % Plt Count (117-477) x10(3)uL MPV (6.7-11.0) fL Neut % (Auto) (40.3-71.8) % Lymph % (Auto) (15.8-45.3) % [place] % (Auto) (5.5-15.2) % Eos % (Auto) (0.1-6.8) % Baso % (Auto) (0.3-3.8) % Neut # (Auto) (1.7-6.9) x10-3/uL Lymph # (Auto) (0.5-4.5) x10-3/uL [place] # (Auto) (0.0-1.2) x10-3/uL Eos # (Auto) (0.0-0.6) x10-3/uL Baso # (Auto) (0.0-0.3) x10-3/uL POC VBG pH 7.54 H (7.32-7.43) pH Units POC VBG pCO2 20 L (41-51) mmHg POC VBG HCO3 17 L (21-29) mmol/L VBG Base Excess -4 L (-2-3) mmol/L O2 Delivery Device Room air Sodium (135-145) mmol/L Potassium (3.5-5.3) mmol/L Chloride (100-110) mmol/L Carbon Dioxide (21-32) mmol/L BUN (7-18) mg/dL Creatinine (0.70-1.30) mg/dL Est Cr Clr Drug Dosing mL/min Estimated GFR (MDRD) (>60) BUN/Creatinine Ratio (9-20) Glucose (80-116) mg/dL POC Glucose 409 H* (80-116) mg/dL Calcium (8.6-10.2) mg/dL Total Bilirubin (0.1-1.3) mg/dL AST (5-25) IU/L ALT (12-36) U/L Alkaline Phosphatase (56-112) IU/L Total Protein (6.0-8.0) g/dL Albumin (3.5-5.2) g/dL Globulin g/dL Albumin/Globulin Ratio Lipase 55 L (73-393) U/L Urine Color (YELLOW) Urine Appearance (CLEAR) Urine pH (5.0-6.5) Ur Specific [place] (1.010-1.025) Urine Protein (NEGATIVE) mg/dL Urine Glucose (UA) (NORMAL) mg/dL Urine Ketones (NEGATIVE) mg/dL Urine Occult Blood (NEGATIVE) Urine Nitrite (NEGATIVE) Urine Bilirubin (NEGATIVE) Urine Urobilinogen (NEGATIVE) mg/dL Ur Leukocyte Esterase (NEGATIVE) Urine RBC (0-5) Urine WBC (0-5) Ur Squamous Epith Cells (NS,R,O) Urine Bacteria (NS) Coarse Granular Casts (NS) 02/04/21 02/04/21 02/04/21 Range/Units 17:46 18:21 19:22 WBC (3.2-10.1) x10-3/uL RBC (3.90-5.90) x10(6)uL Hgb (12.9-17.7) g/dL Hct (38.3-50.1) % MCV (80.8-98.7) fL MCH (27.0-33.3) pg MCHC (28.7-35.3) g/dL RDW (12.4-15.0) % Plt Count (117-477) x10(3)uL MPV (6.7-11.0) fL Neut % (Auto) (40.3-71.8) % Lymph % (Auto) (15.8-45.3) % [place] % (Auto) (5.5-15.2) % Eos % (Auto) (0.1-6.8) % Baso % (Auto) (0.3-3.8) % Neut # (Auto) (1.7-6.9) x10-3/uL Lymph # (Auto) (0.5-4.5) x10-3/uL [place] # (Auto) (0.0-1.2) x10-3/uL Eos # (Auto) (0.0-0.6) x10-3/uL Baso # (Auto) (0.0-0.3) x10-3/uL POC VBG pH (7.32-7.43) pH Units POC VBG pCO2 (41-51) mmHg POC VBG HCO3 (21-29) mmol/L VBG Base Excess (-2-3) mmol/L O2 Delivery Device Sodium (135-145) mmol/L Potassium (3.5-5.3) mmol/L Chloride (100-110) mmol/L Carbon Dioxide (21-32) mmol/L BUN (7-18) mg/dL Creatinine (0.70-1.30) mg/dL Est Cr Clr Drug Dosing mL/min Estimated GFR (MDRD) (>60) BUN/Creatinine Ratio (9-20) Glucose (80-116) mg/dL POC Glucose 339 H 283 H (80-116) mg/dL Calcium (8.6-10.2) mg/dL Total Bilirubin (0.1-1.3) mg/dL AST (5-25) IU/L ALT (12-36) U/L Alkaline Phosphatase (56-112) IU/L Total Protein (6.0-8.0) g/dL Albumin (3.5-5.2) g/dL Globulin g/dL Albumin/Globulin Ratio Lipase (73-393) U/L Urine Color Yellow (YELLOW) Urine Appearance Clear (CLEAR) Urine pH 6.0 (5.0-6.5) Ur Specific [place] 1.020 (1.010-1.025) Urine Protein 500 H (NEGATIVE) mg/dL Urine Glucose (UA) >1000 H (NORMAL) mg/dL Urine Ketones 15 H (NEGATIVE) mg/dL Urine Occult Blood Moderate H (NEGATIVE) Urine Nitrite Negative (NEGATIVE) Urine Bilirubin Negative (NEGATIVE) Urine Urobilinogen Normal (NEGATIVE) mg/dL Ur Leukocyte Esterase Negative (NEGATIVE) Urine RBC 0-5 (0-5) Urine WBC 0-5 (0-5) Ur Squamous Epith Cells Few H (NS,R,O) Urine Bacteria Few H (NS) Coarse Granular Casts Rare H (NS) 02/04/21 Range/Units 19:53 WBC (3.2-10.1) x10-3/uL RBC (3.90-5.90) x10(6)uL Hgb (12.9-17.7) g/dL Hct (38.3-50.1) % MCV (80.8-98.7) fL MCH (27.0-33.3) pg MCHC (28.7-35.3) g/dL RDW (12.4-15.0) % Plt Count (117-477) x10(3)uL MPV (6.7-11.0) fL Neut % (Auto) (40.3-71.8) % Lymph % (Auto) (15.8-45.3) % [place] % (Auto) (5.5-15.2) % Eos % (Auto) (0.1-6.8) % Baso % (Auto) (0.3-3.8) % Neut # (Auto) (1.7-6.9) x10-3/uL Lymph # (Auto) (0.5-4.5) x10-3/uL [place] # (Auto) (0.0-1.2) x10-3/uL Eos # (Auto) (0.0-0.6) x10-3/uL Baso # (Auto) (0.0-0.3) x10-3/uL POC VBG pH (7.32-7.43) pH Units POC VBG pCO2 (41-51) mmHg POC VBG HCO3 (21-29) mmol/L VBG Base Excess (-2-3) mmol/L O2 Delivery Device Sodium (135-145) mmol/L Potassium (3.5-5.3) mmol/L Chloride (100-110) mmol/L Carbon Dioxide (21-32) mmol/L BUN (7-18) mg/dL Creatinine (0.70-1.30) mg/dL Est Cr Clr Drug Dosing mL/min Estimated GFR (MDRD) (>60) BUN/Creatinine Ratio (9-20) Glucose (80-116) mg/dL POC Glucose 240 H (80-116) mg/dL Calcium (8.6-10.2) mg/dL Total Bilirubin (0.1-1.3) mg/dL AST (5-25) IU/L ALT (12-36) U/L Alkaline Phosphatase (56-112) IU/L Total Protein (6.0-8.0) g/dL Albumin (3.5-5.2) g/dL Globulin g/dL Albumin/Globulin Ratio Lipase (73-393) U/L Urine Color (YELLOW) Urine Appearance (CLEAR) Urine pH (5.0-6.5) Ur Specific [place] (1.010-1.025) Urine Protein (NEGATIVE) mg/dL Urine Glucose (UA) (NORMAL) mg/dL Urine Ketones (NEGATIVE) mg/dL Urine Occult Blood (NEGATIVE) Urine Nitrite (NEGATIVE) Urine Bilirubin (NEGATIVE) Urine Urobilinogen (NEGATIVE) mg/dL Ur Leukocyte Esterase (NEGATIVE) Urine RBC (0-5) Urine WBC (0-5) Ur Squamous Epith Cells (NS,R,O) Urine Bacteria (NS) Coarse Granular Casts (NS) Albumin corrected Anion Gap: 20 Meds: Medications Generic Name Dose Route Start Last Admin Trade Name Gabriella PRN Reason Stop Dose Admin Insulin Regular in 0.9 % NACL 100 mls @ 7.711 mls/hr 02/04/21 18:45 02/04/21 19:54 Myxredlin In Ns 100 Unit/100 Ml IV 0.03 units/kg/hr TITRATE RAKAN 2.5 mls/hr Titration Protocol 0.1 UNITS/KG/HR Potassium Chloride/Dextrose/Sod Cl 1,000 mls @ 150 mls/hr 02/04/21 20:00 02/04/21 19:56 D5 1/2 Ns W/ 20 Meq/L Kcl IV 150 mls/hr ASDIRECTED RAKAN Administration Sodium Chloride 10 ml 02/04/21 17:01 02/04/21 17:33 Sodium Chloride 0.9% 10 Ml Syringe FLUSH 10 ml ASDIRECTED PRN Administration Keep Vein Open Discontinued Medications Generic Name Dose Route Start Last Admin Trade Name Gabriella PRN Reason Stop Dose Admin Hydralazine HCl 10 mg 02/04/21 17:04 02/04/21 17:31 Hydralazine 20 Mg/Ml Sdv IVPUSH 02/04/21 17:05 10 mg ONETIME ONE Administration Hydromorphone HCl 0.5 mg 02/04/21 17:09 02/04/21 17:46 Hydromorphone 2 Mg/Ml Sdv IVPUSH 02/04/21 17:10 0.5 mg ONETIME ONE Administration Sodium Chloride 1,000 mls @ 999 mls/hr 02/04/21 17:01 02/04/21 17:33 Normal Saline IV 02/04/21 18:01 999 mls/hr .BOLUS ONE Administration Sodium Chloride 1,000 mls @ 999 mls/hr 02/04/21 17:50 02/04/21 18:30 Normal Saline IV 02/04/21 18:50 999 mls/hr .BOLUS ONE Administration Insulin Regular in 0.9 % NACL 100 mls @ 5.398 mls/hr 02/04/21 18:30 Myxredlin In Ns 100 Unit/100 Ml IV TITRATE RAKAN Protocol 0.07 UNITS/KG/HR Sodium Chloride 1,000 mls @ 250 mls/hr 02/04/21 19:30 Normal Saline IV ASDIRECTED RAKAN Potassium Chloride/Sodium Chloride 1,000 mls @ 200 mls/hr 02/04/21 19:30 02/04/21 19:30 Normal Saline With 20 Meq Kcl IV 200 mls/hr ASDIRECTED RAKAN Administration Insulin Human Regular 5 unit 02/04/21 17:02 02/04/21 17:35 Insulin Regular, Human 100 Units/Ml 3 Ml Vial IV 02/04/21 17:03 5 units ONETIME ONE Administration Insulin Human Regular 5 unit 02/04/21 17:03 02/04/21 17:36 Insulin Regular, Human 100 Units/Ml 3 Ml Vial SUBCUT 02/04/21 17:04 5 unit ONETIME ONE Administration Metoclopramide HCl 10 mg 02/04/21 17:02 02/04/21 17:32 Metoclopramide 10 Mg/2 Ml Sdv IVPUSH 02/04/21 17:03 10 mg ONETIME ONE Administration Pantoprazole Sodium 40 mg 02/04/21 17:02 02/04/21 17:32 Pantoprazole 40 Mg Vial IVPUSH 02/04/21 17:03 40 mg ONETIME ONE Administration - Radiology Interpretation Free Text/Narrative:: CT Abd/Pelvis s/ contrast: Thickened urinary bladder wall, thickened wall of sigmoid and transverse colon, tiny fluid in pelvis, chronic inguinal lymphadenopathy. (verbal report from Dr. Verduzco) - Re-Assessments/Exams Free Text/Narrative Re-Assessment/Exam: 02/04/21 18:53 BP improved to 168/94 after Hydralazine 10mg IV. Blood sugar improved to 339 after Regular Insulin 5 units IV and 5 units SC. Abd pain and N/V improved after Protonix, Dilaudid, and Reglan. Labs suggest DKA, although vpH 7.54. 2L NS IV bolus ordered. Insulin drip ordered, start at 4 units/hr. Patient requires HLOC transfer for Endocrinology, GI, and Nephrology. [facility] does not have Gen Surgery on-call today. [facility] at capacity, only accepting CVA, STEMI, or trauma. Dr. Barnes accepts patient for transfer to [facility]. 02/04/21 19:55 Accucheck 240. Insulin drip decreased to 2.5 units/hr. IVF changed to D5 0.45NS w/ 20 KCL @150 ml/hr Departure - Departure Time of Disposition: 18:59 Disposition: DC/Tfer to Acute Hospital 02 Condition: Fair Clinical Impression: RONALD (acute kidney injury), Epigastric pain, Cannabis abuse, Hypertension, poor control DKA (diabetic ketoacidoses) Qualifiers: Diabetes mellitus type: type 1 Diabetes mellitus complication detail: without coma Qualified Code(s): E10.10 - Type 1 diabetes mellitus with ketoacidosis without coma Vomiting Qualifiers: Vomiting type: unspecified Vomiting Intractability: intractable Nausea presence: with nausea Qualified Code(s): R11.2 - Nausea with vomiting, unspecified - Discharge Information *PRESCRIPTION DRUG MONITORING PROGRAM REVIEWED*: No *COPY OF PRESCRIPTION DRUG MONITORING REPORT IN PATIENT SUDHIR: Not Applicable Referrals: Shayy Montiel NP [Primary Care Provider] - Forms: ED Department Discharge Sepsis Event Note (ED) - Evaluation Sepsis Screening Result: No Definite Risk - Focused Exam Vital Signs: Vital Signs Temp Pulse Resp BP Pulse Ox 02/04/21 18:18 92 18 168/94 H 100 02/04/21 18:03 36.1 C 96 18 195/90 H 100 02/04/21 16:50 35.6 C L 102 H 19 209/112 H 100 - My Orders Last 24 Hours: My Active Orders 02/04/21 17:01 Sodium Chloride 0.9% [Saline Flush] 10 ml FLUSH ASDIRECTED PRN Saline Lock Insert [OM.PC] Routine 02/04/21 17:02 Blood Glucose Check, Bedside [RC] Q1H 02/04/21 18:45 Insulin Regular in 0.9 % NACL [Myxredlin in NS 100 UNIT/100 ML] 100 ml IV TITRATE 02/04/21 20:00 D5 1/2 NS w/ 20 mEq/L KCl 1,000 ml IV ASDIRECTED - Assessment/Plan Last 24 Hours: My Active Orders 02/04/21 17:01 Sodium Chloride 0.9% [Saline Flush] 10 ml FLUSH ASDIRECTED PRN Saline Lock Insert [OM.PC] Routine 02/04/21 17:02 Blood Glucose Check, Bedside [RC] Q1H 02/04/21 18:45 Insulin Regular in 0.9 % NACL [Myxredlin in NS 100 UNIT/100 ML] 100 ml IV TITRATE 02/04/21 20:00 D5 1/2 NS w/ 20 mEq/L KCl 1,000 ml IV ASDIRECTED
[2021-02-04 18:00] LABS: BASE EXCESS VENOUS,POC -4 mmol/L (-2-3); HCO3 VENOUS,POC 17 mmol/L (21-29); PCO2 VENOUS,POC 20 mmHg (41-51); PH VENOUS,POC 7.54 pH Units (7.32-7.43)
[2021-02-04] MEDS ORDERED: Insulin Regular in 0.9 % NACL 100 ML IV SCH ×2 (18:30→18:45)
--- NOTE | 2021-02-04 19:27 | CT ---
CT ABDOMEN AND PELVIS WITHOUT CONTRAST INDICATION: Abdominal pain, vomiting. Spiral 2.5 mm axial sections were obtained through the abdomen and pelvis with sagittal and coronal reconstructions without contrast 02/04/21 and compared with 06/01/20. Total exam DLP was 558.97 mGy/cm. The lower lung hernández and pleural spaces visualized appeared unremarkable. The heart did not appear enlarged. No pericardial effusion was seen. The liver, adrenal glands, kidneys, spleen, and pancreas appear grossly normal. There is an appearance of a fluid fluid level in the gallbladder, which could represent very minimal debris of increased density to a portion of the bile, such as early milk of calcium bile. This is of questionable significance. No calculi were demonstrated. This may be confirmable by ultrasound as felt to be clinically necessary. The appendix appeared to be grossly normal visualized on axial images 124 through 127. No evidence of free air or bowel obstruction was identified. The urinary bladder wall appears to be markedly thickened, which may be on the basis of cystitis. The appearance was present on the previous study also. Thickening of the wall of the sigmoid colon is suggested narrowing the lumen. This should be correlated clinically as to the possibility of the colitis in that area. There appears to be a minimal amount of free fluid posteriorly in the lower pelvis which could be on the basis of infection and should be correlated clinically. There is question of thickening of the wall of the transverse colon which could also be on the basis of colitis, either infectious or other etiology. No retroperitoneal mass was seen. There are again noted multiple enlarged inguinal lymph nodes somewhat more prominently on the right than left for the most part similar to the previous examination. Etiology is indeterminate. No other organomegaly, mass lesions or free fluid collections were suggested in the abdomen or pelvis. IMPRESSION: 1. Thickening of the wall of the urinary bladder may represent cystitis, was present previously also. 2. Thickening of the wall of the sigmoid and transverse colon and possibly to a lesser degree ascending colon may represent colitis - correlate clinically. 3. Inguinal lymphadenopathy again noted. 4. Question the possibility of early milk of calcium bile in the gallbladder - ultrasound may be helpful for confirmation. The report was called to Dr. Damian at 1814 hours 02/04/21. [facility]
[2021-02-04] MEDS ORDERED: NS + KCl 20mEq/L 1,000 ML IV SCH (19:30)
[2021-02-04] MEDS ORDERED: Sodium Chloride 0.9% 1,000 ML IV SCH (19:30)
[2021-02-04] MEDS ORDERED: D5 1/2 NS w/ 20 mEq/L KCl 1,000 ML IV SCH (20:00)
== END 2021-02-04 20:15 ==
LOC: FB.ED 16:43
DX: N17.9 Acute kidney failure, unspecified (principal); E10.10 Type 1 diabetes mellitus with ketoacidosis without coma; E10.22 Type 1 diabetes mellitus with diabetic chronic kidney disease; I12.9 Hypertensive chronic kidney disease with stage 1 through stage 4 chronic kidney disease, or unspecified chronic kidney disease; N18.9 Chronic kidney disease, unspecified; D63.1 Anemia in chronic kidney disease
CPT/HCPCS: 36415; 74176; 80053; 81001; 82947; 83690; 85025; 96374; 96375; 99285; C9113; J0360; J1170; J1815; J2765; J3480; J7030